=== PATIENT | male | born 1980 | race Caucasian/White ===

== ENCOUNTER 2024-05-23 08:34 | Inpatient (IN) | payer BC, SELFPAY ==
[2024-05-21] VITALS (11 sets, daily range): BP systolic 114–145; BP diastolic 60–87; BMI 27.5; BMI 27.4
--- NOTE | 2024-05-21 14:17 | ED.GENMED ---
History of Present Illness
General
Chief Complaint: Eye Problems
Time Seen by Provider: 05/21/24 13:54
History of Present Illness
History of Present Illness:
Patient is a 44-year-old male with history of Crohn's presenting to the emergency department with double vision. Patient states that went to sleep without any problems. Woke up this morning with binocular double vision. He saw his
qa architect who did a complete eye exam. He denies any facial droop numbness tingling or weakness. No speech changes. does note that his left eye was turned to different direction than his right eye he went to his qa architect who
completed a full exam and told him to come to the emergency department for further evaluation as it could be a CVA or neuropathy. No prior history of CVA. No history of hypertension hyperlipidemia or prediabetes. He does not smoke
Phy Exam
Physical Exam
Physical Exam:
GENERAL: in no acute distress
HEENT: normocephalic, extraocular movements intact, moist oral mucosa
NECK: normal inspection
RESPIRATORY: no respiratory distress, clear to auscultation bilaterally
CARDIOVASCULAR: regular rate and rhythm
ABDOMEN/: soft, non-distended, non-tender to palpation, no rebound or guarding
EXTREMITIES: non-tender, no edema/swelling
NEUROLOGIC: alert and oriented x 3, right eye with slight deviation and difficulty with AB duction with binocular double vision otherwise cranial nerves II-XII intact, right upper extremity strength 5/5, left upper extremity strength 5/5, right
lower extremity strength 5/5, left lower extremity strength 5/5, normal sensation to light touch, normal [id number] and [id number], gait not tested formally
SKIN: warm
Course
Orders/Labs/Results
Orders:
Orders
05/21/24 14:16
Electrocardiogram (*1) Urgent
Reason for Study: TIA/Stroke
CT Head & Neck Angio W/wo IV Urgent
Comment:
Reason For Exam: diplopia
EKG- Treatment ONCE
05/21/24 14:22
Basic Metabolic Panel Urgent
Complete Blood Count/With Diff Urgent
05/21/24 14:48
Aspirin Chewable [Low Strength Aspirin] 324 mg PO NOW STA
Clopidogrel Bisulfate [Plavix] 300 mg PO NOW STA
05/21/24 18:00
Atorvastatin [Lipitor] 40 mg PO QPM
05/22/24 08:00
Aspirin Low Dose EC [Aspir Low (Enteric Coated)] 81 mg PO DAILY
Clopidogrel Bisulfate [Plavix] 75 mg PO DAILY
Abnormal Lab Results
05/21/24
14:22
RBC 4.51 L 10^6/uL
(4.70-6.10)
Lymphocytes % 19.8 L %
(20.5-51.1)
Carbon Dioxide 31 H mmol/L
(22-30)
05/21/24 14:22
05/21/24 14:22
Vital Signs
Initial and Last Documented VS:
Initial Vital Signs
Temp Pulse Resp Pulse Ox
98.2 F 78 16 98
05/21/24 13:45 05/21/24 13:45 05/21/24 13:45 05/21/24 13:45
Last Documented Vital Signs
Temp Pulse Resp BP Pulse Ox
98.2 F 78 20 127/71 97
05/21/24 13:45 05/21/24 15:00 05/21/24 15:00 05/21/24 15:00 05/21/24 15:00
MDM/Problems Addressed
Differential Diagnosis Includes:
Patient is a 44-year-old man with history of Crohn's disease presenting to the emergency department with binocular diplopia. Vitals unremarkable and on exam he does have slight deviation of right eye. Concern for cranial nerve palsy versus CVA.
He has no other signs or symptoms to suggest other neuropathies or cavernous sinus thrombosis. Will check blood work EKG and CT CTA. Discussed with neurology who evaluated patient and noticed a slight left-sided pronator drift and right-sided 3rd
cranial nerve palsy. 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 Will proceed with CT CTA. Patient will be admitted for further work
*Critical Care Note
Total Time (30-74mins, 75-104mins- exclusive of procedures): Not Applicable
Update Note
Update Note:
CT scan negative for any acute abnormality or aneurysm. Patient aware of the lymph node findings. Discussed with hospitalist who accepted patient to their service
ED Attending Note
-
Portions of this chart may have been created with voice recognition software.� Occasional wrong word or��sound alike� substitutions may have occurred due to the inherent limitations of voice recognition software.
Discharge Plan
Departure
Patient Disposition: Admit
Date of Disposition: 05/21/24
Time of Disposition: 16:27
Presentation/result/management discussed w/ accepting MD/DO: Hospitalist
Discharge Problem:
CVA (cerebrovascular accident)
Prescriptions:
No Action
biotin 10 mg Tablet
10 mg PO DAILY
loperamide [Imodium A-D] 2 mg Capsule
2 mg PO DAILYPRN PRN (Reason: diarrhea)
cetirizine [Zyrtec] 10 mg Tablet
10 mg PO DAILY
citalopram 20 mg Tablet
20 mg PO DAILY
calcium polycarbophil [FiberCon] 625 mg Tablet
1,250 mg PO DAILY
vitamin B complex Tablet
1 tab PO DAILY
mesalamine 1.2 gram Tablet,Delayed Release (Dr/Ec)
2.4 g PO DAILY
Referrals:
Rinku Joseph DO [Family Provider] -
Interventions
Interventions:
*Risk Screen - Suicide Last Done: 05/21/24 13:45
*General Assessment Last Done: 05/21/24 14:00
*Neglect/Abuse Screening Last Done: 05/21/24 13:45
*ED- Fall Risk Assessment Last Done: 05/21/24 14:00
*ED COVID-19 Vaccine History Last Done: 05/21/24 14:00
Discharge Date and Time
Print Language: OCCITAN
[2024-05-21 14:32] LABS: % Basophils 0.6 % (0-2); % Eosinophils 1.1 % (0-6); % Immature Granulocytes 0.3 % (0-0.5); % Lymphocytes 19.8 % (20.5-51.1); % Monocytes 9.3 % (1.7-9.3); % Neutrophils 68.9 % (42.2-75.2); Absolute Eosinophils 0.1 10^3/uL (0-0.7); Absolute Lymphocytes 1.3 10^3/uL (1.2-3.4); Absolute Monocytes 0.6 10^3/uL (0.1-0.6); Absolute Neutrophils 4.5 10^3/uL (1.4-6.5); Hematocrit 39.3 % (39.0-52.0); Hemoglobin 13.8 g/dL (13.0-18.0); Mean Corp Hgb Conc. 35.1 g/dL (33.0-37.0); Mean Corpuscular Hgb 30.6 pg (27.0-31.0); Mean Corpuscular Volume 87.1 fL (80.0-94.0); Mean Platelet Volume 9.8 fL (7.4-10.4); Nucleated Red Blood Cells % 0 % (-); Platelet Count 204 10^3/uL (130-400); Red Blood Cell Count 4.51 10^6/uL (4.70-6.10); Red Cell Dist. Width 12.3 % (11.5-14.5); White Blood Cell Count 6.5 10^3/uL (4.8-10.8)
[2024-05-21 14:42] LABS: Blood Urea Nitrogen 16 mg/dl (9-20); Calcium 9.6 mg/dl (8.4-10.2); Carbon Dioxide 31 mmol/L (22-30); Chloride 104 mmol/L (98-107); Estimated Creatinine Clearance 120 ml/min; Glucose 93 mg/dl (70-99); Sodium 141 mmol/L (135-145); eGFR > 60.00
--- NOTE | 2024-05-21 14:49 | CON.NEURO ---
Neuro Assessment/Plan
Assessment
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
exam with subtle right 3rd palsy and left pronator drift
out of TNK window
NIHSS of 0, no role for thrombectomy
Plan
Head CT, CTA head/neck
Chew ASA 324 + ASA 81 daily
Plavix 300 + 75 daily
Lipitor 40
gave patient option of admit, tele, MRI, ECHO
or discharge home f/u cardiology holter monitoring
Consultation
Order
Date of Consultation: 05/21/24
Requesting Provider: Lars Young
Reason for Consult: diplopia
Subjective/Objective
Subjective Data
Date of Service: May 21, 2024
Patient is a 44-year-old male with history of Crohn's presenting to the emergency department with double vision. Patient states that went to sleep without any problems. Woke up this morning with binocular double vision. He saw his
economic consultant who did a complete eye exam. He denies any facial droop numbness tingling or weakness. No speech changes. does note that his left eye was turned to different direction than his right eye he went to his economic consultant who
completed a full exam and told him to come to the emergency department for further evaluation as it could be a CVA or neuropathy. No prior history of CVA. No history of hypertension hyperlipidemia or prediabetes. He does not smoke
This afternoon, patient reports binocular vertical diplopia, images one above the other. symptoms are improving. denies weakness or numbness
Objective Data
Vital Signs
Temp Pulse Resp BP Pulse Ox
36.8 C 80 15 138/83 100
05/21/24 13:45 05/21/24 14:06 05/21/24 14:06 05/21/24 14:06 05/21/24 14:06
Lab Results
05/21/24 14:22
05/21/24 14:22
Sodium 141 mmol/L (135-145) 05/21/24 14:22
Potassium 4.0 mmol/L (3.5-5.1) 05/21/24 14:22
BUN 16 mg/dl (9-20) 05/21/24 14:22
Glucose 93 mg/dl (70-99) 05/21/24 14:22
Calcium 9.6 mg/dl (8.4-10.2) 05/21/24 14:22
Patient Allergies
levofloxacin [From Levaquin] Allergy (Severe, Verified 05/21/24 13:48)
Tongue Swelling
cefaclor [From Ceclor] Allergy (Intermediate, Verified 05/21/24 13:48)
Nausea / Vomiting
Physical Exam
-
AAO x3, speech clear, language intact
VFF, EOM with subtle right 3rd palsy
trace left sided weakness, left pronator drift
sensation intact to touch/temp/vibration
DTR normal, symmetric
Medications
-
Active Medications
Generic Name Dose Route Start Last Admin
Trade Name Freq PRN Reason Stop Dose Admin
Aspirin 324 mg 05/21/24 14:48
Aspirin 81 Mg Chewable Tablet PO 05/21/24 14:49
NOW STA
Aspirin 81 mg 05/22/24 08:00
Aspirin 81 Mg (Enteric Coated) Tablet PO 06/19/24 07:59
DAILY PAN
Atorvastatin Calcium 40 mg 05/21/24 18:00
Atorvastatin (Lipitor) 40 Mg Tablet PO 06/18/24 17:59
QPM PAN
Clopidogrel Bisulfate 75 mg 05/22/24 08:00
Clopidogrel 75 Mg Tablet PO 06/11/24 08:01
DAILY PAN
Clopidogrel Bisulfate 300 mg 05/21/24 14:48
Clopidogrel 300 Mg Tablet PO 05/21/24 14:49
NOW STA
[2024-05-21] MEDS: LOW STRENGTH ASPIRIN 324 MG PO (15:14)
[2024-05-21] MEDS: PLAVIX 300 MG PO (15:14)
[2024-05-21] MEDS: LIPITOR 40 MG PO (17:54)
--- NOTE | 2024-05-21 18:40 | HPS.HSE ---
Family Physician
-
Family Physician: Rinku Joseph
Chief Complaint
-
Double vision
History of Present Illness
This is a 44 y.o male with past medical history significant for presenting to the emergency department with double vision.
Patient reported that he woke up this a.m. with double vision. Noted vertical diploplia when watching TV He denies any facial droop. He denies any numbness or tingling. He had no dysphagia after he or aphasia. A staff spouse noted that he had a
nonsynchronous movement of his eyes. He had a complete ophthalmological exam and was sent to the emergency department for evaluation.
Patient denies any headache. He denies any prior history of TIA or CVA. He denies history of hyperlipidemia diabetes or hypertension. Denies family history.
On neuro's exam, right CN III palsy was noted as well as a left upper extremity pronator drift.
When I saw the patient he no longer has any double vision but states he still has mild focusing difficulty.
In the emergency department the patient was afebrile. Blood pressure was 123/81 with a pulse of 87. ECG shows a normal sinus rhythm at a rate of 80 with a right bundle branch block, no priors for comparison. CBC was normal. Electrolytes
BUN/creatinine were all normal. Glucose was normal. He had a CT of the head which showed no acute abnormalities. CT angio of the head and neck was without any large vessel occlusion, dissection aneurysm or bleeding. Patient seen by neurology
with recommendations provided.
Medical History
Past Medical History
Past Medical History: Reports Other (Crohn's disease)
Past Surgical History: Reports Bowel Resection
Social History
Tobacco: Non-smoker
Alcohol: Occasional
Drug: None
Personal:
Living: With Family
Employment: Employed
Family History
Family History: Not pertinent
Allergies / Home Medications
Allergies reflects when Allergies were last updated in [employer].
Home Medications with original date entered in [employer]
Allergy/Medication List:
Allergies
Allergy/AdvReac Type Severity Reaction Status Date / Time
levofloxacin [From Levaquin] Allergy Severe Tongue Verified 05/21/24 13:48
Swelling
cefaclor [From Ceclor] Allergy Intermediate Nausea / Verified 05/21/24 13:48
Vomiting
Home Medications
biotin 10 mg tablet 10 mg PO DAILY 05/21/24
calcium polycarbophil 625 mg tablet (FiberCon) 1,250 mg PO DAILY 05/21/24
cetirizine 10 mg tablet (Zyrtec) 10 mg PO DAILY 05/21/24
citalopram 20 mg tablet 20 mg PO DAILY 05/21/24
loperamide 2 mg capsule (Imodium A-D) 2 mg PO DAILYPRN PRN diarrhea 05/21/24
mesalamine 1.2 gram tablet,delayed release 2.4 g PO DAILY 05/21/24
vitamin B complex 1 tab PO DAILY 05/21/24
Review of Systems
-
History Source: Patient
Constitutional: Reports No Symptoms
EENT: Reports No Symptoms
Respiratory: Reports No Symptoms
Cardiac: Reports No Symptoms
Abdomen/GI: Reports No Symptoms
: Reports No Symptoms
Musculoskeletal: Reports No Symptoms
Skin: Reports No Symptoms
Neurological: Reports No Symptoms
Endocrine: Reports No Symptoms
Hematologic/Lymphatic: Reports No Symptoms
Psych: Reports No Symptoms
Physical Exam
Vital Signs
Vital Signs
Temp Pulse Resp BP Pulse Ox
98.2 F 87 19 133/81 95
05/21/24 13:45 05/21/24 17:40 05/21/24 17:40 05/21/24 17:40 05/21/24 17:40
Physical Exam
General: Well Developed, Well Nourished, No Apparent Distress and Comfortable
HEENT: NormoCephalic, Anicteric, Moist mucous membranes and Atraumatic
Respiratory: Clear
Cardiac: S1/S2 and Regular Rhythm
Breast: Deferred by me
GI: Soft, Non Tender, Non Distended and Normal Bowel Sounds
Rectal: Deferred by Provider
Genito-urinary: Deferred by me
Musculoskeletal: No Clubbing, No Cyanosis and No Edema
Skin: Warm
Neuro: AO x 3, No Motor Deficits, Cranial Nerves Intact, No Sensory Deficits and DTR's Intact & Symmetrical; No Slurred Speech or Facial Droop
Hematologic/Lymphatic: No Lymphadenopathy
Psych: Calm
Laboratory Results
-
05/21/24 14:22
05/21/24 14:22
Data Reviewed
-
CT Scan: Report Reviewed by me
Medical Tests (Nuc Med, Echo, EKG etc): Image Personally Visualized and interpreted
Lab Data: Labs Reviewed by me
Old Records: Reviewed
Impression/Plan
-
IMPRESSION:
44-year-old with history of Crohn's disease presenting to the emergency department with episode of double vision that started as he arose this morning. Vertical diploplia when watching TV and mild blurriness. Currently NIHSS equals 0. Seen by
neurology and found to have a mild cranial nerve palsy with left upper extremity weakness also mild. CT of the head was negative. CT angio was also negative. Labs are unremarkable. ECG shows a normal sinus rhythm with a right bundle. There is
concern for CVA/TIA in the right midbrain (Lafleur syndrome). On my exam, there was no longer any deficit c/w TIA.
PLAN:
CVA/TIA
- admit to telemetry
- started on aspirin/plavix and statin
- MRI brain in am
- echo in am
- neurochecks q 6 for now
- esr, lipid panel and a1c
Crohns stable
- continue mesalamine
DVT PPX - SCDs
Code status - Full code
[2024-05-22] VITALS (7 sets, daily range): BP systolic 94–137; BP diastolic 60–80; PULSE 68; O2SAT 96–98
[2024-05-22] MEDS: ASPIR LOW (ENTERIC COATED) 81 MG PO (08:04)
[2024-05-22] MEDS: FIBERCON 1250 MG PO (08:04)
[2024-05-22] MEDS: ZYRTEC 10 MG PO (08:04)
[2024-05-22] MEDS: PLAVIX 75 MG PO (08:04)
[2024-05-22] MEDS: CELEXA 20 MG PO (08:04)
[2024-05-22] MEDS: B COMPLEX w/VITAMIN C 1 CAPLET PO (08:05)
[2024-05-22 08:15] LABS: Blood Urea Nitrogen 17 mg/dl (9-20); Calcium 9.3 mg/dl (8.4-10.2); Carbon Dioxide 27 mmol/L (22-30); Chloride 105 mmol/L (98-107); Estimated Creatinine Clearance 120 ml/min; Glucose 92 mg/dl (70-99); HDL Cholesterol 50 mg/dl; LDL Cholesterol, Calculated 71 mg/dl; Magnesium 2.3 mg/dl (1.6-2.3); Potassium 4.2 mmol/L (3.5-5.1); Sodium 142 mmol/L (135-145); Total Cholesterol 163 mg/dl (50-199); Triglyceride 211 mg/dl (10-149); Very Low Density Lipoprotein 42 mg/dl (0-30); eGFR > 60.00
--- NOTE | 2024-05-22 08:23 | W.PN.HOSP.TC ---
Today's Communication/Plan
-
Repeat MRI and IRAD consulted for LP tomorrow
Assessment / Plan
Assessment / Plan
Physical Exam
General: Not in acute distress
HEENT: Normocephalic, Moist mucous membranes and Atraumatic
Respiratory: Clear to Auscultation Bilaterally
Cardiac: S1/S2 and Regular Rhythm
GI: Soft, Non Tender, Non Distended and Normal Bowel Sounds
Musculoskeletal: No Cyanosis and No Edema
Skin: Warm. Dry.
Neuro: AAO x 3, Right Pronator Drift, otherwise: No Motor Deficits, Cranial Nerves Intact, No Sensory Deficits
Psych: Calm

Assessment/Plan
44 y/o male presented with double vision. Patient reported that he woke up in the morning with double vision (vertical diplopia). He denied any facial droop. He denied any numbness or tingling. He had no dysphagia or aphasia. His spouse noted that
he had a nonsynchronous movement of his eyes. He had a complete ophthalmological exam and was sent to the emergency department for evaluation. Patient denied any headache. He denied any prior history of TIA or CVA. He denied history of
hyperlipidemia diabetes or hypertension.
Patient had a CT of the head which showed no acute abnormalities.
Seen around the time of admission by neurology and found to have a mild cranial nerve palsy (subtle right 3rd cranial nerve palsy) with left upper extremity pronator drift. CT of the head was negative.
Presentation with transient vertical diplopia, now resolved
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
CVA/TIA
- Aspirin/Plavix and Statin all now stopped since this is not a stroke
- Per neurology, 'MRI brain without contrast imgs rev'd with patient, agree right anterior thalamic focus of diffusion and FLAIR hyperintensity - does not look typical for a 1 day
old stroke; suspecting mass or demyelinating; additional left frontal lesion on FLAIR - which may or may not be related'
-MRI brain with contrast and LP tomorrow
History of Fluttering in the chest -- related to anxiety?
-Had EKG at that time unremarkable
Crohns stable
- continue mesalamine
DVT Prophylaxis: SCDs. Lovenox.
Code status: Full code
Anticipated Discharge: 24 - 48 hours
Subjective/Interval History
-
Date of Service: May 22, 2024
Patient was seen and examined. He reported that his double vision resolved. No new neurologic symptoms.
Objective Data
-
Labs:
Laboratory Results
05/22/24
07:27
Sodium 142
Potassium 4.2
Chloride 105
Carbon Dioxide 27
BUN 17
Creatinine 0.8
Glucose 92
Calcium 9.3
Vital Signs:
Vital Signs
Temp Pulse Resp BP Pulse Ox
98.5 F 67 18 102/61 98
05/22/24 07:39 05/22/24 07:39 05/22/24 07:39 05/22/24 07:39 05/22/24 07:39
I&O
05/21/24 05/22/24 05/23/24
06:59 06:59 06:59
Intake Total 120 / 120
Balance 120 / 120
[2024-05-22 08:42] LABS: Erythrocyte Sed Rate 6 mm/hour (0-20)
[2024-05-22 09:34] LABS: Glycohemoglobin (HgbA1c) 4.7 % (4.0-5.6)
--- NOTE | 2024-05-22 12:03 | PTOTSP ---
Speech therapy
Presentation: Patient was alert, cooperative and oriented. Patient's speech and language appeared to be WNL during conversation.
Swallowing function: WINK CUTTER OPERATOR observed patient with several bites of regular consistency solids and sips of thin liquids in which patient appeared to tolerate as he did not exhibit any overt clinical s/sx of aspiration or difficulty with mastication/
manipulation. Patient denied any dysphagia complaints but states his appetite has decreased since admission which he connects with the distaste for the food.
Recommendations:
1) reg/ thin liquids
2) aspiration precautions
3) medications as tolerated
Plan: WINK CUTTER OPERATOR will continue to follow to ensure tolerance; pending hospitalization.
--- NOTE | 2024-05-22 14:41 | CM ---
Initial assessment completed with pt and at bedside.
Pt is a 44yr old male admitted on OBS with CVA vs TIA OBS form explained at beside
At baseline, Luis and his live in a multi level home with their family.
Pt is indep, working, and drives at baseline.
PCP; Rinku Joseph
Pharm; [facility]
PLAN; No needs anticipated
--- NOTE | 2024-05-22 15:37 | W.PN.NEURO.1 ---
Today's Communication / Plan
-
Stop ASA, Plavix, Lipitor
discussed management options, he agrees to stay another night for MRI brain with contrast and LP tomorrow
Neuro Assessment/Plan
Assessment
presented with transient vertical diplopia, now resolved
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
Head CT normal
CTA head/neck normal
MRI brain without contrast imgs rev'd with patient, agree right anterior thalamic focus of diffusion and FLAIR hyperintensity - does not look typical for a 1 day old stroke; suspecting mass or demyelinating; additional left frontal lesion on FLAIR -
which may or may not be related
Plan
Stop ASA, Plavix, Lipitor
discussed management options, he agrees to stay another night for MRI brain with contrast and LP tomorrow
Subjective/Objective
Subjective Data
Date of Service: May 22, 2024
double vision resolved
Objective Data
Vital Signs
Temp Pulse Resp BP Pulse Ox
37.1 C 70 20 121/60 97
05/22/24 14:49 05/22/24 14:49 05/22/24 14:49 05/22/24 14:49 05/22/24 14:49
Lab Results
05/21/24 14:22
05/22/24 07:27
Sodium 142 mmol/L (135-145) 05/22/24 07:27
Potassium 4.2 mmol/L (3.5-5.1) 05/22/24 07:27
BUN 17 mg/dl (9-20) 05/22/24 07:27
Glucose 92 mg/dl (70-99) 05/22/24 07:27
Calcium 9.3 mg/dl (8.4-10.2) 05/22/24 07:27
LDL Cholesterol, Calc 71 mg/dl 05/22/24 07:27
Patient Allergies
levofloxacin [From Levaquin] Allergy (Severe, Verified 05/21/24 13:48)
Tongue Swelling
cefaclor [From Ceclor] Allergy (Intermediate, Verified 05/21/24 13:48)
Nausea / Vomiting
Physical Exam
-
AAOx3, speech clear, language intact
VFF, EOMI, face symmetric
full strength b/l UE/LE, right pronator drift
[2024-05-22] MEDS: LOVENOX 40 MG SC (18:01)
[2024-05-23] VITALS (8 sets, daily range): BP systolic 70–128; BP diastolic 57–79
--- NOTE | 2024-05-23 06:34 | W.PN.HOSP.TC ---
Today's Communication/Plan
-
ID eval
monitor off abx
monitor temp, wbc
spine MRI as per Neuro
Assessment / Plan
Assessment / Plan
Physical Exam
General: Not in acute distress, appears comfortable at this time
HEENT: Normocephalic, Moist mucous membranes and Atraumatic
Respiratory: Clear to Auscultation Bilaterally
Cardiac: S1/S2 and Regular Rhythm
GI: Soft, Non Tender, Non Distended and Normal Bowel Sounds
Musculoskeletal: No Cyanosis and No Edema, strength 5/5 all ext's
Skin: Warm. Dry.
Neuro: AOx3 conversant coherent
Psych: Calm

Assessment/Plan
44M p/w double vision (vertical diplopia). Denied facial droop, numbness, tingling, dysphagia, or aphasia. His spouse noted that he had nonsynchronous movement of his eyes. He had a complete ophthalmological exam and was sent to the emergency
department for evaluation. Patient denied any headache. He denied any prior history of TIA/CVA. CT of the head which showed no acute abnormalities. Evaluated by neurology and found to have a mild cranial nerve palsy (subtle right 3rd cranial nerve
palsy) with left upper extremity pronator drift. Vertical Diplopia transient since completely resolved. Initial suspicion minor stroke or TIA right midbrain (Lafleur syndrome) but stroke ruled out from MRI Brain. MRI brain however concerning for
possibly demyelination vs infectious/inflammatory encephalopathies.
-Neuro eval appreciated Empiric Aspirin/Plavix Statin discontinued
- LP performed 05/23
-CSF studies concerning for pleocytosis
-ID eval appreciated symptomatology and CSF analysis not consistent w/ meningitis, cont monitoring off abx
-pending MRI cervical/thoracic spine as per neurology
Crohns stable
- continue mesalamine
PT/OT appreciated no needs
DVT Prophylaxis: SCDs. Lovenox.
Code status: Full code
discussed with patient and patient's Margie
I spent a total of 45 minutes with the patient or on the floor. More than 50% of this time involved counseling and coordination of care.
Anticipated Discharge: Within 24 hours
Subjective/Interval History
-
Date of Service: May 23, 2024
no acute distress. reports overall feeling well. no new episodes diplopia. ambulating without issues.
Objective Data
-
Vital Signs:
Vital Signs
Temp Pulse Resp BP Pulse Ox
97.9 F 66 18 99/57 98
05/23/24 03:07 05/23/24 03:07 05/23/24 03:07 05/23/24 03:07 05/23/24 03:07
I&O
05/21/24 05/22/24 05/23/24
06:59 06:59 06:59
Intake Total 120 / 120 1160 / 1160
Balance 120 / 120 1160 / 1160
[2024-05-23 07:45] LABS: INR 0.97; PT 13.2 Sec (11.4-14.6)
[2024-05-23] MEDS: ZYRTEC 10 MG PO (08:52)
[2024-05-23] MEDS: CELEXA 20 MG PO (08:52)
[2024-05-23] MEDS: B COMPLEX w/VITAMIN C 1 CAPLET PO (08:52)
[2024-05-23] MEDS: FIBERCON 1250 MG PO (08:52)
[2024-05-23 13:26] LABS: CSF Clarity Clear; CSF Color Colorless; CSF Tube # 3
[2024-05-23 13:28] LABS: Red Cell Count/CSF 5 mm^3
[2024-05-23 13:29] LABS: White Cell Count/CSF 126 mm^3 (0-5)
--- NOTE | 2024-05-23 13:40 | CON.NEURO ---
Neuro Assessment/Plan
Assessment
presented with transient vertical diplopia, now resolved
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
Head CT normal
CTA head/neck normal
MRI brain without contrast imgs rev'd with patient, agree right anterior thalamic focus of diffusion and FLAIR hyperintensity - does not look typical for a 1 day old stroke; suspecting mass or demyelinating; additional left frontal lesion on FLAIR -
which may or may not be related
Plan
Stop ASA, Plavix, Lipitor
discussed management options, he agrees to stay another night for MRI brain with contrast and LP tomorrow
Consultation
Order
Date of Consultation: 05/23/24
Neurology follow-up note.
HPI: This is a 44-year-old man who presented to [facility] on May 21, 2024 with transient painless binocular diplopia lasting less than 24 hours.The patient described seeing objects vertically on top of each other, with no
preference for right or left. The patient denied associated symptoms such as headaches, difficulty swallowing, or changes in sensation. He also denied any recent eye trauma. The patient reported being 'a little off grabbing things' during this
episode.
ER VS: 138/83, 78, afebrile
EKG:NSR, RBBB, QTc Int : 479 ms
Labs: Normal ESR, LDL,
CSF�WBCs�126, RBCs�5,
Brain MRI with and without gadolinium (05/23/2024) FLAIR hyperintense signal at the anterior margin of the right thalamus, two adjacent foci of postcontrast enhancement are identified at this location measuring 0.8 x 0.6 x 0.7 cm and 0.5 x 0.5 x 1.3
cm.
Mild FLAIR hyperintense signal of the bilateral mamillary bodies. 0.4 cm focus of enhancement to the left midline above the optic chiasm and anterior to the left mamillary body. 0.5 cm focus of enhancement to the right of midline that appears to
involve the right optic nerve tract just distal to the optic chiasm.
CTA head/neck�no hemodynamically significant stenosis, hilar, supraclavicular and paratracheal lymph node enlargement.
PMH: Crohn's disease on Mesalamine, ARABELLA Meckel's diverticulum
PSH: Intestinal resection, exploratory laparotomy
SH: , non-smoker, no history of excessive alcohol use
FH: No family history of autoimmune disease
All:
ROS: Constitutional: Negative. Negative for chills, fever and unexpected weight change.
HENT: Negative for ear pain, hearing loss, tinnitus and trouble swallowing.
Eyes: Negative. Negative for photophobia, pain and visual disturbance.
Respiratory: Negative for cough, choking and shortness of breath.
Cardiovascular: Negative for chest pain, palpitations and leg swelling.
Gastrointestinal: Negative for abdominal pain and vomiting.
Endocrine: Negative. Negative for cold intolerance.
Genitourinary: Negative for dysuria, flank pain and urgency.
Musculoskeletal: Negative for back pain, gait problem, neck pain and neck stiffness.
Skin: Negative for rash.
Allergic/Immunologic: Negative. Negative for immunocompromised state.
Neurological: Negative for dizziness, tremors, seizures, speech difficulty, numbness and headaches.
Psychiatric/Behavioral: Negative for behavioral problems, confusion and hallucinations.
General: Well developed. In no acute distress.
Cardio: Regular rate and rhythm without murmur. Extremities are without cyanosis or edema.
Neuro:
Mental Status: Alert, oriented to person, place, and date. Normal attention and recall. Good fund of knowledge. Follows complex requests across the midline. Comprehension, naming, and repetition intact. Immediate and delayed recall 3/3.
Cranial Nerves: Pupils are equally round and reactive to light. EOMs full. Visual castañeda full to confrontation. No ptosis. No nystagmus. V1-V3 intact to light touch and pinprick bilaterally, symmetric. Face symmetric. Normal hearing AU. The
palate elevated well. SCMs and traps 5/5. Tongue midline. No dysarthria.
Motor: Normal bulk and tone. No pronator or arm drift. Strength 5/5 throughout. No clonus.
Reflexes: 2+ throughout the upper extremities and knees. 2/2 in AJs. Plantar responses flexor bilaterally.
Sensory: Normal pinprick, vibration and JPS.
Coordination: No dysmetria or tremor.
Gait: deferred
Assessment and Plan:
I. Multifocal cranial nerve, mamillary body and basal ganglia enhancing signal abnormalities. Differential diagnosis includes inflammatory versus demyelinating versus infectious etiologies.
II. Lymphadenopathy
III. Crohn's disease
- Fall precautions
- Placed check thiamine level, EMELINA, CRP, NIEVES, B12, SPEP, ANCA
-Start IV thiamine after vitamin B1 level is drawn
- Follow-up CSF studies
- PT
I personally reviewed all radiology and labs along with past medical records pertinent to current medical problems. Total time spent in patient care is 60 minutes.
Thank you for allowing us to participate in the care of this patient. We will continue to follow. Please do not hesitate to contact us with any questions or concerns.
Subjective/Objective
Subjective Data
Date of Service: May 23, 2024
Objective Data
Vital Signs
Temp Pulse Resp BP Pulse Ox
37.0 C 64 18 110/72 98
05/23/24 11:38 05/23/24 12:27 05/23/24 12:27 05/23/24 12:27 05/23/24 11:38
Lab Results
05/21/24 14:22
05/22/24 07:27
PT 13.2 Sec (11.4-14.6) 05/23/24 07:23
INR 0.97 05/23/24 07:23
Sodium 142 mmol/L (135-145) 05/22/24 07:27
Potassium 4.2 mmol/L (3.5-5.1) 05/22/24 07:27
BUN 17 mg/dl (9-20) 05/22/24 07:27
Glucose 92 mg/dl (70-99) 05/22/24 07:27
Calcium 9.3 mg/dl (8.4-10.2) 05/22/24 07:27
LDL Cholesterol, Calc 71 mg/dl 05/22/24 07:27
Patient Allergies
levofloxacin [From Levaquin] Allergy (Severe, Verified 05/21/24 13:48)
Tongue Swelling
cefaclor [From Ceclor] Allergy (Intermediate, Verified 05/21/24 13:48)
Nausea / Vomiting
Medications
-
Active Medications
Generic Name Dose Route Start Last Admin
Trade Name Freq PRN Reason Stop Dose Admin
Acetaminophen 650 mg 05/21/24 20:44
Acetaminophen 650 Mg Rectal Suppository RECTAL 06/18/24 20:43
Q4HPRN PRN
ROSENBERG, mild pain, or temp >100.4F
Acetaminophen 650 mg 05/21/24 20:44
Acetaminophen 325 Mg Tablet PO 06/18/24 20:43
Q4HPRN PRN
ROSENBERG, mild pain, or temp >100.4F
Calcium Polycarbophil 1,250 mg 05/22/24 08:00 05/23/24 08:52
Calcium Polycarbophil 625 Mg Tablet PO 06/19/24 07:59 1,250 mg
DAILY PAN Administration
Cetirizine HCl 10 mg 05/22/24 08:00 05/23/24 08:52
Cetirizine Hcl 10 Mg Tablet PO 06/19/24 07:59 10 mg
DAILY PAN Administration
Citalopram Hydrobromide 20 mg 05/22/24 08:00 05/23/24 08:52
Citalopram 20 Mg Tablet PO 06/19/24 07:59 20 mg
DAILY PAN Administration
Enoxaparin Sodium 40 mg 05/22/24 18:00 05/22/24 18:01
Enoxaparin Sodium 40 Mg/0.4 Ml Syringe SC 06/19/24 17:59 40 mg
QPM PAN Administration
Loperamide HCl 2 mg 05/21/24 20:44
Loperamide 2 Mg Capsule PO 06/18/24 20:43
DAILYPRN PRN
diarrhea
Mesalamine 1.2 Gram 0 grams 05/22/24 08:00
Tablet,Delayed PO 06/19/24 07:59
Release (Dr/Ec) Take DAILY PAN
2 Tablets (2 X 1.2
Gm = 2.4 Gm) Po
Sodium Chloride 0 flush 05/21/24 22:00
Sodium Chloride 0.9% (Flush) Syringe IV 06/18/24 21:59
PER PROTOCOL PAN
Vitamin B Complex/Vitamin C 1 caplet 05/22/24 08:00 05/23/24 08:52
Vitamin B Complex With Vitamin C Caplet PO 06/19/24 07:59 1 caplet
DAILY PAN Administration
Home Medications
�Medication �Instructions �Recorded
biotin 10 mg tablet 10 mg PO DAILY 05/21/24
calcium polycarbophil 625 mg 1,250 mg PO DAILY 05/21/24
tablet (FiberCon)
cetirizine 10 mg tablet (Zyrtec) 10 mg PO DAILY 05/21/24
citalopram 20 mg tablet 20 mg PO DAILY 05/21/24
loperamide 2 mg capsule (Imodium 2 mg PO DAILYPRN PRN diarrhea 05/21/24
A-D)
mesalamine 1.2 gram tablet,delayed 2.4 g PO DAILY 05/21/24
release
vitamin B complex 1 tab PO DAILY 05/21/24
Vital Signs and Labs
-
Vital Signs and Labs:
Vital Signs
Temp Pulse Resp BP Pulse Ox
37.0 C 64 18 110/72 98
05/23/24 11:38 05/23/24 12:27 05/23/24 12:27 05/23/24 12:27 05/23/24 11:38
Lab Results
05/21/24 14:22
05/22/24 07:27
PT 13.2 Sec (11.4-14.6) 05/23/24 07:23
INR 0.97 05/23/24 07:23
Sodium 142 mmol/L (135-145) 05/22/24 07:27
Potassium 4.2 mmol/L (3.5-5.1) 05/22/24 07:27
BUN 17 mg/dl (9-20) 05/22/24 07:27
Glucose 92 mg/dl (70-99) 05/22/24 07:27
Calcium 9.3 mg/dl (8.4-10.2) 05/22/24 07:27
LDL Cholesterol, Calc 71 mg/dl 05/22/24 07:27
Medications
-
Medications:
Generic Name Dose Route Start Last Admin
Trade Name Freq PRN Reason Stop Dose Admin
Acetaminophen 650 mg 05/21/24 20:44
Acetaminophen 650 Mg Rectal Suppository RECTAL 06/18/24 20:43
Q4HPRN PRN
ROSENBERG, mild pain, or temp >100.4F
Acetaminophen 650 mg 05/21/24 20:44
Acetaminophen 325 Mg Tablet PO 06/18/24 20:43
Q4HPRN PRN
ROSENBERG, mild pain, or temp >100.4F
Calcium Polycarbophil 1,250 mg 05/22/24 08:00 05/23/24 08:52
Calcium Polycarbophil 625 Mg Tablet PO 06/19/24 07:59 1,250 mg
DAILY PAN Administration
Cetirizine HCl 10 mg 05/22/24 08:00 05/23/24 08:52
Cetirizine Hcl 10 Mg Tablet PO 06/19/24 07:59 10 mg
DAILY PAN Administration
Citalopram Hydrobromide 20 mg 05/22/24 08:00 05/23/24 08:52
Citalopram 20 Mg Tablet PO 06/19/24 07:59 20 mg
DAILY PAN Administration
Enoxaparin Sodium 40 mg 05/22/24 18:00 05/22/24 18:01
Enoxaparin Sodium 40 Mg/0.4 Ml Syringe SC 06/19/24 17:59 40 mg
QPM PAN Administration
Loperamide HCl 2 mg 05/21/24 20:44
Loperamide 2 Mg Capsule PO 06/18/24 20:43
DAILYPRN PRN
diarrhea
Mesalamine 1.2 Gram 0 grams 05/22/24 08:00
Tablet,Delayed PO 06/19/24 07:59
Release (Dr/Ec) Take DAILY PAN
2 Tablets (2 X 1.2
Gm = 2.4 Gm) Po
Sodium Chloride 0 flush 05/21/24 22:00
Sodium Chloride 0.9% (Flush) Syringe IV 06/18/24 21:59
PER PROTOCOL PAN
Vitamin B Complex/Vitamin C 1 caplet 05/22/24 08:00 05/23/24 08:52
Vitamin B Complex With Vitamin C Caplet PO 06/19/24 07:59 1 caplet
DAILY PAN Administration
Home Medications
-
Home Medications
biotin 10 mg tablet 10 mg PO DAILY 05/21/24
calcium polycarbophil 625 mg tablet (FiberCon) 1,250 mg PO DAILY 05/21/24
cetirizine 10 mg tablet (Zyrtec) 10 mg PO DAILY 05/21/24
citalopram 20 mg tablet 20 mg PO DAILY 05/21/24
loperamide 2 mg capsule (Imodium A-D) 2 mg PO DAILYPRN PRN diarrhea 05/21/24
mesalamine 1.2 gram tablet,delayed release 2.4 g PO DAILY 05/21/24
vitamin B complex 1 tab PO DAILY 05/21/24
[2024-05-23 14:22] LABS: Spinal Fluid Glucose 35 mg/dl (40-70); Spinal Fluid Protein 118 mg/dl (12-60)
[2024-05-23 14:59] LABS: Spinal Fluid Lymphocytes 91 %; Spinal Fluid Macrophages 9 %
--- NOTE | 2024-05-23 16:17 | CM ---
Chart reviewed. Care ongoing at this time.
LOC changed to IP today
Therapy assessed, no skilled needs at this time
Plan: Home; no needs when stable
--- NOTE | 2024-05-23 16:18 | CON.ID ---
Consultation
-
Date/Time Consultation Requested: 05/23/2024 15:12
Date/Time Consultation Performed: 05/23/2024 1600
Requesting Provider: Garfield
Performing Provider: Anup
Reason for Consultation: Abnormal CSF
Chief Complaint / Past History
History of Present Illness
Luis Iraheta is a 44-year-old man being evaluated regarding abnormal lumbar puncture results. History is obtained from chart review, along with patient interview.
The patient has a significant past medical history of Crohn's disease. He reports he was in his usual state of health until the morning of 05/21 when he woke up he was found to have double vision. He was seen at his fram[place] office, and sent
to the emergency room for further evaluation. Initial concern was for possible CVA or some other type of LAB TECH issue. He underwent a lumbar puncture today and found to have a pleocytosis. Infectious Diseases is asked to comment upon further
antibiotic management.
At this time he reports that his diplopia has completely resolved. He has not had any recent illnesses, no recent fevers or chills. He does have a pet dog. He does not have significant outdoor exposure.
Past History
Additional Past Medical History:
Crohn's disease
Additional Past Surgical History:
Small bowel resection (2000)
Allergy History:
levofloxacin [From Levaquin] Allergy (Severe, Verified 05/21/24 13:48)
Tongue Swelling
cefaclor [From Ceclor] Allergy (Intermediate, Verified 05/21/24 13:48)
Nausea / Vomiting
Medications Reviewed: Yes
Current Antibiotics:
None
Social History
Tobacco: Non-Smoker
Alcohol: Occasional
Drug: None
Personal:
Living: With Family
Employment: Employed
Family History
Family History: Not Pertinent
Review of Systems
Vital Signs
Temp Pulse Resp BP Pulse Ox
98 F 91 18 128/67 99
05/23/24 15:09 05/23/24 15:09 05/23/24 15:09 05/23/24 15:09 05/23/24 15:09
Physical Exam
Physical Exam
Constitutional: No Acute Distress, Comfortable and Non-toxic
Eyes: Pupils Equal, Pupils Round, No Conjunctival Hemorrhage, Sclera Anicteric and Other (EOMI)
Pharynx: Negative Erythema
Oral: Negative No Thrush or No Ulcers
Cardiovascular: Regular Rate and S1/S2; Negative S3/S4
Pulmonary: Clear; Negative Wheezes, Rales or Rhonchi
Gastrointestinal: Soft, Non Tender and Non Distended
Skin: Negative Rash or Jaundice
Neurological: Awake and Alert
Psychological: Calm
Lab / Diagnostic Study Results
05/21/24 14:22
05/22/24 07:27
Abs Immat Gran (auto) 0.0 10^3/uL (0-0.05) 05/21/24 14:22
Absolute Neuts (auto) 4.5 10^3/uL (1.4-6.5) 05/21/24 14:22
Absolute Lymphs (auto) 1.3 10^3/uL (1.2-3.4) 05/21/24 14:22
Absolute Monos (auto) 0.6 10^3/uL (0.1-0.6) 05/21/24 14:22
Absolute Basos (auto) 0.0 10^3/uL (0-0.2) 05/21/24 14:22
Immature Gran % 0.3 % (0-0.5) 05/21/24 14:22
Neutrophils % 68.9 % (42.2-75.2) 05/21/24 14:22
Lymphocytes % 19.8 % (20.5-51.1) L 05/21/24 14:22
Monocytes % 9.3 % (1.7-9.3) 05/21/24 14:22
Eosinophils % 1.1 % (0-6) 05/21/24 14:22
Basophils % 0.6 % (0-2) 05/21/24 14:22
ESR 6 mm/hour (0-20) 05/22/24 07:27
PT 13.2 Sec (11.4-14.6) 05/23/24 07:23
INR 0.97 05/23/24 07:23
Microbiology Results
CSF
05/23/24
12:10
CSF Appearance Clear
CSF Color Colorless
CSF WBC 126 H*
CSF RBC 5
CSF Lymphocytes 91
CSF Macrophages 9
CSF Glucose 35 L
CSF Total Protein 118 H
Imaging:
05/23/2024 MRI brain with contrast: LAIR hyperintense signal is redemonstrated at the anterior margin of the right thalamus, as seen on the recent brain MRI from 05/22/2024. Two adjacent foci of postcontrast enhancement are identified at this
location measuring 0.8 x 0.6 x 0.7 cm and 0.5 x 0.5 x 1.3 cm. Findings are of uncertain etiology. Wernicke encephalopathy is a possibility, although the distribution is somewhat atypical. Active demyelination or other inflammatory/infectious
encephalopathies could be considered. The patient is currently scheduled for a lumbar puncture, and correlation with CSF fluid analysis may be helpful. Further imaging follow-up can also be performed. (See official report for additional detail.
Film personally reviewed.)
Assessment / Plan
Diplopia; resolved.
Abnormal MRI (1.4 cm focus of diffusion in anterior aspect of right thalamus)
Abnormal CSF; symptomatology and CSF analysis not consistent with meningitis
Recommendations:
Observe off antibiotics.
Await further workup of LAB TECH lesion.
Monitor white count and temperature curve.
[2024-05-23] MEDS: LOVENOX 40 MG SC (17:08)
[2024-05-23 17:19] LABS: C-Reactive Protein < 5.00 mg/L (0.0-10.00)
[2024-05-23 18:10] LABS: Vitamin B12 426 pg/ml (239-931)
[2024-05-24 03:43] VITALS: BP 93/67
--- NOTE | 2024-05-24 06:22 | W.PN.HOSP.TC ---
Today's Communication/Plan
-
discharge
Assessment / Plan
Assessment / Plan
Physical Exam
General: Not acute distress, appears comfortable at this time
HEENT: Normocephalic, Moist mucous membranes and Atraumatic
Respiratory: Clear to Auscultation Bilaterally
Cardiac: S1/S2 and Regular Rhythm
GI: Soft, Non Tender, Non Distended and Normal Bowel Sounds
Musculoskeletal: No Cyanosis and No Edema, strength 5/5 all ext's
Skin: Warm. Dry.
Neuro: AOx3 conversant coherent
Psych: Calm

Assessment/Plan
44M p/w double vision (vertical diplopia). Denied facial droop, numbness, tingling, dysphagia, or aphasia. His spouse noted that he had nonsynchronous movement of his eyes. He had a complete ophthalmological exam and was sent to the emergency
department for evaluation. Patient denied any headache. He denied any prior history of TIA/CVA. CT of the head which showed no acute abnormalities. Evaluated by neurology and found to have a mild cranial nerve palsy (subtle right 3rd cranial nerve
palsy) with left upper extremity pronator drift. Vertical Diplopia transient since completely resolved. Initial suspicion minor stroke or TIA right midbrain (Lafleur syndrome) but stroke ruled out from MRI Brain. MRI brain however concerning for
possibly demyelination vs infectious/inflammatory encephalopathies.
-Neuro eval appreciated Empiric Aspirin/Plavix Statin discontinued, not needed with stroke rule out
- LP performed 05/23
-CSF studies concerning for pleocytosis
-ID eval appreciated symptomatology and CSF analysis not consistent w/ meningitis, cont monitoring off abx
-MRI cervical/thoracic spine unremarkable
Crohns stable
- continue mesalamine
PT/OT appreciated no needs
DVT Prophylaxis: SCDs. Lovenox.
Code status: Full code
Medically stable for discharge home with outpatient follow up recommendations.
discussed with patient and patient's Margie
Total Time Preparing Discharge __40 minutes including examination of the patient, summary of the hospital stay, instructions for continuing care to all relevant caregivers; and preparation of discharge records, prescriptions, and referral
forms if necessary.
Anticipated Discharge: Today
Subjective/Interval History
-
Date of Service: May 24, 2024
No acute distress. Reports feeling well. Denies new acute issues. Eager to go home.
Objective Data
-
Labs:
Laboratory Results
05/24/24
06:00
WBC Pending
Hgb Pending
Hct Pending
Plt Count Pending
Sodium Pending
Potassium Pending
Chloride Pending
Carbon Dioxide Pending
BUN Pending
Creatinine Pending
Glucose Pending
Calcium Pending
Vital Signs:
Vital Signs
Temp Pulse Resp BP Pulse Ox
97.9 F 75 16 93/67 98
05/24/24 03:43 05/24/24 03:43 05/24/24 03:43 05/24/24 03:43 05/24/24 03:43
I&O
05/22/24 05/23/24 05/24/24
06:59 06:59 06:59
Intake Total 120 / 120 1160 / 1160 960 / 960
Balance 120 / 120 1160 / 1160 960 / 960
[2024-05-24 07:43] VITALS: BP 107/68
[2024-05-24] MEDS: ZYRTEC 10 MG PO (07:59)
[2024-05-24] MEDS: B COMPLEX w/VITAMIN C 1 CAPLET PO (07:59)
[2024-05-24] MEDS: CELEXA 20 MG PO (07:59)
[2024-05-24] MEDS: FIBERCON 1250 MG PO (07:59)
[2024-05-24 08:09] LABS: Hematocrit 37.8 % (39.0-52.0); Hemoglobin 13.2 g/dL (13.0-18.0); Mean Corp Hgb Conc. 34.9 g/dL (33.0-37.0); Mean Corpuscular Hgb 30.8 pg (27.0-31.0); Mean Corpuscular Volume 88.3 fL (80.0-94.0); Mean Platelet Volume 10.1 fL (7.4-10.4); Platelet Count 203 10^3/uL (130-400); Red Blood Cell Count 4.28 10^6/uL (4.70-6.10); Red Cell Dist. Width 12.2 % (11.5-14.5); White Blood Cell Count 5.5 10^3/uL (4.8-10.8)
[2024-05-24 08:34] LABS: Blood Urea Nitrogen 17 mg/dl (9-20); Calcium 9.3 mg/dl (8.4-10.2); Carbon Dioxide 28 mmol/L (22-30); Chloride 103 mmol/L (98-107); Estimated Creatinine Clearance 107 ml/min; Glucose 91 mg/dl (70-99); Magnesium 2.2 mg/dl (1.6-2.3); Phosphorus 4.3 mg/dl (2.5-4.5); Potassium 4.4 mmol/L (3.5-5.1); Sodium 141 mmol/L (135-145); eGFR > 60.00
--- NOTE | 2024-05-24 08:40 | W.PN.ID1 ---
Date of Service
Date of Service: May 24, 2024
Today's Communication
Observe off abx.
Assessment / Plan
Diplopia; resolved.
Abnormal MRI (1.4 cm focus of diffusion in anterior aspect of right thalamus)
Abnormal CSF; no symptomatology of meningismus, and CSF analysis not consistent with meningitis
Recommendations:
Observe off antibiotics.
Await further workup of HELPDESK MANAGER lesion.
Monitor white count and temperature curve.
����������������������������������������������������������
Chief Complaint
-: Other (Abnormal LP)
Subjective / Review of Systems
Patient seen and examined. Reports feeling well. No return of diplopia.
Review of Systems: No Fever and No Chills
Vital Signs / Physical Exam
Vital Signs
Vital Signs
Temp Pulse Resp BP Pulse Ox
97.8 F 72 18 107/68 98
05/24/24 07:43 05/24/24 07:43 05/24/24 07:43 05/24/24 07:43 05/24/24 07:43
Physical Exam
Constitutional: No Acute Distress, Comfortable and Non-toxic
Eyes: Pupils Equal, Pupils Round, Sclera Anicteric and Other (EOMI)
Cardiovascular: S1/S2; Negative S3/S4
Pulmonary: Non Labored
Gastrointestinal: Non Distended
Neurological: Awake and Alert; Negative Meningeal Signs
Psychological: Calm
Objective Data
Lab Data
Lab Results
05/24/24 06:50
05/24/24 06:50
ESR 6 mm/hour (0-20) 05/22/24 07:27
PT 13.2 Sec (11.4-14.6) 05/23/24 07:23
INR 0.97 05/23/24 07:23
Estimated Creat Clear 107 ml/min 05/24/24 06:50
C-Reactive Protein < 5.00 mg/L (0.0-10.00) 05/23/24 15:11
Most recent labs reviewed.
CSF
05/23/24
12:10
CSF Appearance Clear
CSF Color Colorless
CSF WBC 126 H*
CSF RBC 5
CSF Lymphocytes 91
CSF Macrophages 9
CSF Glucose 35 L
CSF Total Protein 118 H
Imaging:
05/23/2024 MRI brain with contrast: LAIR hyperintense signal is redemonstrated at the anterior margin of the right thalamus, as seen on the recent brain MRI from 05/22/2024. Two adjacent foci of postcontrast enhancement are identified at this
location measuring 0.8 x 0.6 x 0.7 cm and 0.5 x 0.5 x 1.3 cm. Findings are of uncertain etiology. Wernicke encephalopathy is a possibility, although the distribution is somewhat atypical. Active demyelination or other inflammatory/infectious
encephalopathies could be considered. The patient is currently scheduled for a lumbar puncture, and correlation with CSF fluid analysis may be helpful. Further imaging follow-up can also be performed. (See official report for additional detail.
Film personally reviewed.)
[2024-05-24 11:15] VITALS: BP 142/74
--- NOTE | 2024-05-24 13:38 | W.PN.NEURO.1 ---
Today's Communication / Plan
-
.
Subjective/Objective
Subjective Data
Date of Service: May 24, 2024
Neurology follow-up note.
Mr. Iraheta reports no complaints. He denies having headaches, change in vision or strength. No reports of change in personality behavior based on patient's spouse report
No labs�, CRP�normal, vitamin B12�426, NIEVES, vitamin B1�pending.
CSF�WBCs�125, normal RBCs, lymphocytes, glucose�35, total protein�180.
Brain MRI with and without gadolinium (05/23/2024) FLAIR hyperintense signal at the anterior margin of the right thalamus, two adjacent foci of postcontrast enhancement are identified at this location measuring 0.8 x 0.6 x 0.7 cm and 0.5 x 0.5 x 1.3
cm.
Mild FLAIR hyperintense signal of the bilateral mamillary bodies. 0.4 cm focus of enhancement to the left midline above the optic chiasm and anterior to the left mamillary body. 0.5 cm focus of enhancement to the right of midline that appears to
involve the right optic nerve tract just distal to the optic chiasm.
CTA head/neck�no hemodynamically significant stenosis, hilar, supraclavicular and paratracheal lymph node enlargement.
PMH: Crohn's disease on Mesalamine, MEREDITH Meckel's diverticulum
PSH: Intestinal resection, exploratory laparotomy
SH: , non-smoker, drinks beer up to 7 cans once a week for decades
FH: No family history of autoimmune disease
All: Cefaclor, levofloxacin
ROS: Constitutional: Negative. Negative for chills, fever and unexpected weight change.
HENT: Negative for ear pain, hearing loss, tinnitus and trouble swallowing.
Eyes: Negative. Negative for photophobia, pain and visual disturbance.
Respiratory: Negative for cough, choking and shortness of breath.
Cardiovascular: Negative for chest pain, palpitations and leg swelling.
Gastrointestinal: Negative for abdominal pain and vomiting.
Endocrine: Negative. Negative for cold intolerance.
Genitourinary: Negative for dysuria, flank pain and urgency.
Musculoskeletal: Negative for back pain, gait problem, neck pain and neck stiffness.
Skin: Negative for rash.
Allergic/Immunologic: Negative. Negative for immunocompromised state.
Neurological: Negative for dizziness, tremors, seizures, speech difficulty, numbness and headaches.
Psychiatric/Behavioral: Negative for behavioral problems, confusion and hallucinations.
General: Well developed. In no acute distress.
Cardio: Regular rate and rhythm without murmur. Extremities are without cyanosis or edema.
Neuro:
Mental Status: Alert, oriented to person, place, and date. Normal attention and recall. Good fund of knowledge. Follows complex requests across the midline. Comprehension, naming, and repetition intact. Immediate and delayed recall 3/3.
Cranial Nerves: Pupils are equally round and reactive to light. EOMs full. Visual castañeda full to confrontation. No ptosis. No nystagmus. V1-V3 intact to light touch and pinprick bilaterally, symmetric. Face symmetric. Normal hearing AU. The
palate elevated well. SCMs and traps 5/5. Tongue midline. No dysarthria.
Motor: Normal bulk and tone. No pronator or arm drift. Strength 5/5 throughout. No clonus.
Reflexes: 2+ throughout the upper extremities and knees. 2/2 in AJs. Plantar responses flexor bilaterally.
Sensory: Normal pinprick, vibration and JPS.
Coordination: No dysmetria or tremor.
Gait: deferred
Assessment and Plan:
I. Multifocal cranial nerve, mamillary body and basal ganglia enhancing signal abnormalities. Differential diagnosis includes inflammatory versus demyelinating versus infectious etiologies.
II. Lymphadenopathy
III. Crohn's disease
- Fall precautions
- Follow-up CSF and serological tests
- C and T-spine MRI w/wo meredith (can be done as outpatient)
- Start IV thiamine
-Repeat brain MRI in 3-4 weeks.
- PT
I personally reviewed all radiology and labs along with past medical records pertinent to current medical problems. Total time spent in patient care is 36 minutes.
Thank you for allowing us to participate in the care of this patient. We will continue to follow. Please do not hesitate to contact us with any questions or concerns.
Objective Data
Vital Signs
Temp Pulse Resp BP Pulse Ox
36.6 C 95 20 142/74 95
05/24/24 11:15 05/24/24 11:15 05/24/24 11:15 05/24/24 11:15 05/24/24 11:15
Lab Results
05/24/24 06:50
05/24/24 06:50
PT 13.2 Sec (11.4-14.6) 05/23/24 07:23
INR 0.97 05/23/24 07:23
Sodium 141 mmol/L (135-145) 05/24/24 06:50
Potassium 4.4 mmol/L (3.5-5.1) 05/24/24 06:50
BUN 17 mg/dl (9-20) 05/24/24 06:50
Glucose 91 mg/dl (70-99) 05/24/24 06:50
Calcium 9.3 mg/dl (8.4-10.2) 05/24/24 06:50
Phosphorus 4.3 mg/dl (2.5-4.5) 05/24/24 06:50
LDL Cholesterol, Calc 71 mg/dl 05/22/24 07:27
Vitamin B12 426 pg/ml (239-931) 05/23/24 15:11
Patient Allergies
levofloxacin [From Levaquin] Allergy (Severe, Verified 05/21/24 13:48)
Tongue Swelling
cefaclor [From Ceclor] Allergy (Intermediate, Verified 05/21/24 13:48)
Nausea / Vomiting
Vital Signs and Labs
-
Vital Signs and Labs:
Vital Signs
Temp Pulse Resp BP Pulse Ox
36.6 C 95 20 142/74 95
05/24/24 11:15 05/24/24 11:15 05/24/24 11:15 05/24/24 11:15 05/24/24 11:15
Lab Results
05/24/24 06:50
05/24/24 06:50
PT 13.2 Sec (11.4-14.6) 05/23/24 07:23
INR 0.97 05/23/24 07:23
Sodium 141 mmol/L (135-145) 05/24/24 06:50
Potassium 4.4 mmol/L (3.5-5.1) 05/24/24 06:50
BUN 17 mg/dl (9-20) 05/24/24 06:50
Glucose 91 mg/dl (70-99) 05/24/24 06:50
Calcium 9.3 mg/dl (8.4-10.2) 05/24/24 06:50
Phosphorus 4.3 mg/dl (2.5-4.5) 05/24/24 06:50
LDL Cholesterol, Calc 71 mg/dl 05/22/24 07:27
Vitamin B12 426 pg/ml (239-931) 05/23/24 15:11
Medications
-
Medications:
Generic Name Dose Route Start Last Admin
Trade Name Freq PRN Reason Stop Dose Admin
Acetaminophen 650 mg 05/21/24 20:44
Acetaminophen 650 Mg Rectal Suppository RECTAL 06/18/24 20:43
Q4HPRN PRN
ROSENBERG, mild pain, or temp >100.4F
Acetaminophen 650 mg 05/21/24 20:44
Acetaminophen 325 Mg Tablet PO 06/18/24 20:43
Q4HPRN PRN
ORSENBERG, mild pain, or temp >100.4F
Calcium Polycarbophil 1,250 mg 05/22/24 08:00 05/24/24 07:59
Calcium Polycarbophil 625 Mg Tablet PO 06/19/24 07:59 1,250 mg
DAILY PAN Administration
Cetirizine HCl 10 mg 05/22/24 08:00 05/24/24 07:59
Cetirizine Hcl 10 Mg Tablet PO 06/19/24 07:59 10 mg
DAILY PAN Administration
Citalopram Hydrobromide 20 mg 05/22/24 08:00 05/24/24 07:59
Citalopram 20 Mg Tablet PO 06/19/24 07:59 20 mg
DAILY PAN Administration
Enoxaparin Sodium 40 mg 05/22/24 18:00 05/23/24 17:08
Enoxaparin Sodium 40 Mg/0.4 Ml Syringe SC 06/19/24 17:59 40 mg
QPM PAN Administration
Loperamide HCl 2 mg 05/21/24 20:44
Loperamide 2 Mg Capsule PO 06/18/24 20:43
DAILYPRN PRN
diarrhea
Mesalamine 1.2 Gram 0 grams 05/22/24 08:00
Tablet,Delayed PO 06/19/24 07:59
Release (Dr/Ec) Take DAILY PAN
2 Tablets (2 X 1.2
Gm = 2.4 Gm) Po
Sodium Chloride 0 flush 05/21/24 22:00
Sodium Chloride 0.9% (Flush) Syringe IV 06/18/24 21:59
PER PROTOCOL PAN
Thiamine HCl 100 mg 05/24/24 14:00
Thiamine (100 Mg/Ml) 2 Ml Vial IV 05/26/24 08:01
DAILY PAN
Vitamin B Complex/Vitamin C 1 caplet 05/22/24 08:00 05/24/24 07:59
Vitamin B Complex With Vitamin C Caplet PO 06/19/24 07:59 1 caplet
DAILY PAN Administration
Home Medications
-
Home Medications
biotin 10 mg tablet 10 mg PO DAILY Supplement 05/21/24
calcium polycarbophil 625 mg tablet (FiberCon) 1,250 mg PO DAILY Constipation 05/21/24
cetirizine 10 mg tablet (Zyrtec) 10 mg PO DAILY Allergies 05/21/24
citalopram 20 mg tablet 20 mg PO DAILY Mental Health/Anxiety 05/21/24
loperamide 2 mg capsule (Imodium A-D) 2 mg PO DAILYPRN PRN diarrhea 05/21/24
mesalamine 1.2 gram tablet,delayed release 2.4 g PO DAILY Gastrointestinal Issue 05/21/24
vitamin B complex 1 tab PO DAILY Supplement 05/21/24
[2024-05-24] MEDS: THIAMINE INJECTION 100 MG IV (15:54)
[2024-05-24 16:50] VITALS: BP 143/74
--- NOTE | 2024-05-24 17:16 | W.DCSUMMARY ---
Discharge Summary
Discharge Data
Date of Admission: 05/23/24
Date of Discharge: 05/24/24
-
Pending Results: Yes
Additional Pending Results:
Lab work results as per neurology
Discharge Plan
-
Patient Disposition: Home (Routine Discharge)
Discharge Diagnosis/Procedures: Transient Diplopia unclear etiology possibly infectious encephalitis since resolved
Brain MRI results concerning for possible inflammatory vs demyelinating vs infectious etiologies
Pleocytosis in cerebrospinal fluid of unclear etiology
Condition: Good
Diet: Low Cholesterol
Activity: As tolerated
Driving Restrictions: As prior to admission
Bathing Restrictions: None
Others Tests: Follow up with primary care provider or neurology to repeat Brain MRI in 3-4 weeks of discharge.
Activity Restrictions/Additional Instructions:
Follow up with primary care provider in 1 week of discharge and Neurology in 2-4 weeks of discharge.
Referrals:
Rinku Joseph DO [Family Provider] - in one week
Ye Lazo MD [Active] - in two to four weeks
Prescriptions:
Continued
biotin 10 mg Tablet
10 mg PO DAILY
loperamide [Imodium A-D] 2 mg Capsule
2 mg PO DAILYPRN PRN (Reason: diarrhea)
cetirizine [Zyrtec] 10 mg Tablet
10 mg PO DAILY
citalopram 20 mg Tablet
20 mg PO DAILY
calcium polycarbophil [FiberCon] 625 mg Tablet
1,250 mg PO DAILY
vitamin B complex Tablet
1 tab PO DAILY
mesalamine 1.2 gram Tablet,Delayed Release (Dr/Ec)
2.4 g PO DAILY
Discharge Orders:
Discharge Patient (As Directed); Ordered 05/24/24
Ordered By: Glenroy Catalan
Discharge Date and Time
Print Language: AMHARIC
[2024-05-24] MEDS: LOVENOX SC (17:24)
[2024-05-25 20:12] LABS: Angiotensin-1-converting Enzym 73 U/L (16-85)
[2024-05-26 01:36] LABS: ANA, IgG Reflex to HEp-2 None Detected (None Detected)
[2024-05-26 01:48] LABS: SSA 52 (Ro)(ENA) Ab, IgG 2 AU/mL (0-40); SSA 60 (Ro)(ENA) Ab, IgG 1 AU/mL (0-40); SSB (La)(ENA) Ab, IgG 1 AU/mL (0-40)
[2024-05-26 09:17] LABS: Myeloperoxidase Antibody 0 AU/mL (0-19); Serine Protease-3, IgG 0 AU/mL (0-19)
[2024-05-26 10:34] LABS: Albumin Index 18.3 ratio (0.0-9.0); Albumin, CSF 73 mg/dL (0-35); Albumin, Serum 3993 mg/dL (3500-5200); CSF IgG Synthesis Rate 3.3 mg/d (<=8.0); CSF Oligoclonal Bands Negative (Negative); CSF Oligoclonal Bands Number Matching Bands (0-1); IgG 797 mg/dL (768-1632); IgG, CSF 7.6 mg/dL (0.0-6.0)
[2024-05-26 13:40] LABS: Lyme Antibody Screen, EIA Negative (Negative)
== END 2024-05-24 18:30 | disposition home or self-care (01) | DRG 123 ==
LOC: 4 WEST ACU 08:34
PROVIDERS: Radiology Diagnostic Radiology; ADMITTING PHYSICIAN Internal Medicine; ATTENDING PHYSICIAN Internal Medicine; CONSULT PHYSICIAN Internal Medicine Infectious Disease; CONSULT PHYSICIAN Psychiatry & Neurology Clinical Neurophysiology; EMERGENCY PHYSICIAN Student in an Organized Health Care Education/Training Program; FAMILY PHYSICIAN Family Medicine; OTHER PHYSICIAN Psychiatry & Neurology Neurology
PROC: BR191ZZ Fluoroscopy of Lumbar Spine using Low Osmolar Contrast (ICD-10-PCS; 2024-05-23)
PROC: 009Y3ZX Drainage of Lumbar Spinal Cord, Percutaneous Approach, Diagnostic (ICD-10-PCS; 2024-05-23)
DX: H53.2 Diplopia (principal); K50.90 Crohn's disease, unspecified, without complications; G37.9 Demyelinating disease of central nervous system, unspecified; H49.01 Third [oculomotor] nerve palsy, right eye; Z79.899 Other long term (current) drug therapy; I45.10 Unspecified right bundle-branch block; Z88.1 Allergy status to other antibiotic agents; Q43.0 Meckel's diverticulum (displaced) (hypertrophic)
CPT/HCPCS: 62328; 70496; 70498; 70551; 70552; 72147; 72156; 80048; 80061; 82040; 82042; 82164; 82607; 82784; 82945; 83036; 83516; 83735; 83916; 84100; 84157; 84425; 85025; 85027; 85610; 85652; 86038; 86140; 86235; 86618; 88108; 89051; 92610; 93005; 97129; 97162; 97165; 99285; A9575; Q9967

== ENCOUNTER 2024-06-03 01:31 | Observation (INO) | payer BC, SELFPAY ==
[2024-06-02 21:47] VITALS: BP 138/83
[2024-06-02 22:06] VITALS: BMI 27.3
[2024-06-02 22:09] VITALS: BP 132/80
[2024-06-02 22:09] LABS: Glucose - Point of Care 104 mg/dl (70-99)
--- NOTE | 2024-06-02 22:28 | ED.GENMED ---
History of Present Illness
General
Chief Complaint: Dizziness
Source: patient and family
Time Seen by Provider: 06/02/24 22:00
Nursing documentation reviewed up to this point in time: agreed with
History of Present Illness
History of Present Illness:
This a pleasant 44-year-old male presents to the emergency department after an episode of dizziness, visual acuity changes, and gait disturbance. Patient states that symptoms started around 4 PM. last remembers him being 'normal' around 5 PM.
Patient was at his son's soccer game and he was watching when bystanders called the police on him because they thought he was intoxicated. He was interrogated and definitely could realize why they thought he was intoxicated but he admits to no
alcohol tonight. Patient states that he drinks 6 or 7 beers twice a week but typically on the weekends. He works in [employer] and works from home. Patient had somewhat similar symptoms approximately 2 weeks ago and was admitted for 4 days. He
was diagnosed with a thiamine deficiency and has a follow-up appointment with neurology in September. Patient has been taking thiamine regularly since discharge. Patient states that he has not had any other events since his discharge.
Vital signs are stable. Patient not hypoxic
Nursing note reviewed. I agree with nursing documentation up to this point in time.
Home Meds and allergies reviewed.
NUMBER AND COMPLEXITY OF PROBLEMS ADDRESSED AT THE ENCOUNTER
� Chronic conditions affecting care: Alcohol use
� Acute Exacerbation and/or Progression of Chronic Illness: Seemingly acute problem
� Differential Diagnosis includes: TIA, CVA, Warnicke's encephalopathy, thiamine deficiency
AMOUNT AND/OR COMPLEXITY OF DATA TO BE REVIEWED AND ANALYZED
I performed an independent evaluation of the following and my interpretation is:
EKG: EKG shows normal sinus rhythm rate 73 with normal intervals, normal axis. There is a right bundle branch block present. When compared to previous EKG dated May 21, 2024, no obvious change noted.
Pulse Ox: Not Hypoxic
Cut Off Machine Operator: Sinus Rhythm rate of 66
CT:
X-rays:
Ultrasound:
Laboratory Studies:
Other:
Review of other/old records:
Clinical information was obtained by an independent historian:
Prescriptions/Medications Considered but not given:
Further testing considered but not performed:
RISK OF COMPLICATIONS AND/OR MORBIDITY OR MORTALITY OF PATIENT MANAGEMENT
Social determinants of health affecting care: Good Social Support
Discussion with other providers:
Escalation of care including admission/observation vs risk of discharge considered: After being observed in the emergency department, patient is
CRITICAL CARE NOTE:
Total Time (exclusive of procedures):
Update:
Phy Exam
General Physical Exam
General Presentation: well appearing and no apparent distress
General Skin: warm and dry
General Habitus: normal
General Mental: alert
General Hydration: appears well hydrated
ENT Exam
ENT Exam: EOMI, pharynx normal, neck supple and normocephalic
Eye Exam
Eye Exam: PERRL, EOMI and other (Slight ptosis on the left which states is new)
Cardiovascular Exam
Cardiovascular Exam: regular rate/rhythm, no edema, no murmur and normal peripheral pulses
Pulmonary Exam
Pulmonary Exam: lungs clear, no respiratory distress, no rales, no crackles, no rhonchi, no stridor, no wheezing and no cough
Gastrointestinal Exam
Gastrointestinal Exam: normal bowel sounds, non tender, soft, no organomegaly, no pulsatile mass and non distended
Neurological Exam
Neurological Exam: alert, oriented x3, no motor deficits and speech normal
Musculoskeletal Exam
Musculoskeletal Exam: full ROM and no edema
Skin Exam
Skin Exam: normal color, warm/dry, no rash and no petechia
Psychiatric Exam
Psychiatric Exam: normal mood/affect
Scores
NIH Stroke Score
Level of Consciousness: 0 - Alert
LOC Questions: 0-Answers both correctly
LOC Commands: 0-Performs both correctly
Best Horizontal Gaze: 0-Normal
Visual Da Silva: 0=Normal, no visual loss
Facial Palsy: 0=Normal, symmetrical
Motor - Right Arm: 0=No drift 10 seconds
Motor - Left Arm: 0=No drift 10 seconds
Motor - Right Le-No drift 5 seconds
Motor - Left Le-No drift 5 seconds
Limb Ataxia: 0-Absent
Sensation: 0-Normal
Best Language: 0-No aphasia
Dysarthria: 0-Normal
Extinction and Inattention: 0-No abnormality
Total Score:: 0
Thrombolytic Contraindication
Reasons for NON-Tx with Thrombolytics ABSOLUTE Exclusions: Greater than 4.5 hrs from onset of sxs
Course
Orders/Labs/Results
Orders:
Orders
06/02/24 21:58
CT HEAD STROKE ALERT W/o Cont Urgent
Reason For Exam: stroke alert
06/02/24 22:12
CT HEAD/NECK ANG STROKE ALERT Urgent
Reason For Exam: gait disturbance
Cardiac Monitoring- Treatment ONCE
Urinalysis Reflex To Culture Urgent
Urine Drug Abuse Screen Urgent
06/02/24 22:13
Electrocardiogram (*1) Stat
Reason for Study: Other
Other Reason for Exam: overdose
EKG- Treatment ONCE
06/02/24 22:15
Acetaminophen Urgent
Alcohol Urgent
Comprehensive Metabolic Panel Urgent
PTT Urgent
Prothrombin Time Urgent
Salicylate Urgent
06/02/24 22:16
Complete Blood Count/With Diff Urgent
Erythrocyte Sed Rate Urgent
Troponin I Urgent
Abnormal Lab Results
06/02/24 06/02/24 06/02/24
22:07 22:15 22:16
RBC 4.40 L 10^6/uL
(4.70-6.10)
Hct 38.2 L %
(39.0-52.0)
MCH 31.4 H pg
(27.0-31.0)
Immature Gran % 0.6 H %
(0-0.5)
Lymphocytes % 20.3 L %
(20.5-51.1)
Glucose 101 H mg/dl
(70-99)
Salicylates < 1.0 L mg/dl
(2.0-20.0)
Acetaminophen < 10 L ug/ml
(10-30)
POC Glucose 104 H mg/dl
(70-99)
06/02/24 22:16
06/02/24 22:15
Vital Signs
Initial and Last Documented VS:
Initial Vital Signs
Temp Pulse Resp BP Pulse Ox
97.9 F 81 15 138/83 99
06/02/24 21:47 06/02/24 21:47 06/02/24 21:47 06/02/24 21:47 06/02/24 21:47
Last Documented Vital Signs
Temp Pulse Resp BP Pulse Ox
97.9 F 57 14 117/65 96
06/02/24 21:47 06/02/24 23:45 06/02/24 23:45 06/02/24 23:00 06/02/24 23:45
*Radiology
Radiology exam reviewed: radiology read reviewed
*Pulse Oximetry
Patient hypoxic: no
*Cut Off Machine Operator Interpretation
Rate: normal
Interpretation: normal
Rhythm: sinus
*Critical Care Note
Total Time (30-74mins, 75-104mins- exclusive of procedures): 35 (Critical care statement: A total of 35 minutes of critical care time was provided for this patient. This time is separate from time utilized to perform the aforementioned documented
procedures. Aggregate critical care time includes only time during which I was engaged in work directl)
Update Note
Update Note:
Spoke with Dr. Draper, neurology who remembers patient from previous admission.
She request that we admit him for further testing.
She does not want aspirin or Plavix at this time. She does not feel that this is a vascular issue
No tPA recommended based on greater than 4.5 hours from onset
ED Attending Note
-
Portions of this chart may have been created with voice recognition software.� Occasional wrong word or��sound alike� substitutions may have occurred due to the inherent limitations of voice recognition software.
Discharge Plan
Departure
Patient Disposition: Admit
Date of Disposition: 06/02/24
Time of Disposition: 23:59
Presentation/result/management discussed w/ accepting MD/DO: Hospitalist
Discharge Problem:
Brain TIA, Ataxia
Prescriptions:
No Action
biotin 10 mg Tablet
10 mg PO DAILY
loperamide [Imodium A-D] 2 mg Capsule
2 mg PO DAILYPRN PRN (Reason: diarrhea)
cetirizine [Zyrtec] 10 mg Tablet
10 mg PO DAILY
citalopram 20 mg Tablet
20 mg PO DAILY
calcium polycarbophil [FiberCon] 625 mg Tablet
1,250 mg PO DAILY
vitamin B complex Tablet
1 tab PO DAILY
mesalamine 1.2 gram Tablet,Delayed Release (Dr/Ec)
2.4 g PO DAILY
thiamine mononitrate (vit B1) 100 mg Tablet
100 mg PO DAILY Qty: 30 0RF
Referrals:
Rinku Joseph DO [Family Provider] -
Interventions
Interventions:
*Risk Screen - Suicide Last Done: 06/02/24 22:08
*General Assessment Last Done: 06/02/24 21:47
*Neglect/Abuse Screening Last Done: 06/02/24 21:47
*ED- Fall Risk Assessment Last Done: 06/02/24 22:06
*ED COVID-19 Vaccine History Last Done: 06/02/24 21:47
ED- Neurological Assessment Last Done: 06/02/24 22:18
ED- Cardiac Assessment Last Done: 06/02/24 22:22
Discharge Date and Time
Print Language: SLOVENIAN
[2024-06-02 22:35] LABS: % Basophils 0.6 % (0-2); % Eosinophils 1.7 % (0-6); % Immature Granulocytes 0.6 % (0-0.5); % Lymphocytes 20.3 % (20.5-51.1); % Monocytes 8.1 % (1.7-9.3); % Neutrophils 68.7 % (42.2-75.2); Absolute Eosinophils 0.1 10^3/uL (0-0.7); Absolute Lymphocytes 1.5 10^3/uL (1.2-3.4); Absolute Monocytes 0.6 10^3/uL (0.1-0.6); Absolute Neutrophils 4.9 10^3/uL (1.4-6.5); Hematocrit 38.2 % (39.0-52.0); Hemoglobin 13.8 g/dL (13.0-18.0); Mean Corp Hgb Conc. 36.1 g/dL (33.0-37.0); Mean Corpuscular Hgb 31.4 pg (27.0-31.0); Mean Corpuscular Volume 86.8 fL (80.0-94.0); Mean Platelet Volume 10.1 fL (7.4-10.4); Nucleated Red Blood Cells % 0 % (-); Platelet Count 234 10^3/uL (130-400); Red Cell Dist. Width 12.3 % (11.5-14.5); White Blood Cell Count 7.2 10^3/uL (4.8-10.8)
[2024-06-02 22:38] LABS: INR 0.94
[2024-06-02 22:39] LABS: APTT 25.6 Sec (23.4-35.0); Alcohol None Detected
[2024-06-02 22:40] LABS: ALT (SGPT) 37 U/L (0-50); AST (SGOT) 29 U/L (17-59); Acetaminophen < 10 ug/ml (10-30); Albumin 4.7 g/dl (3.5-5.0); Alkaline Phosphatase 39 U/L (38-126); Blood Urea Nitrogen 15 mg/dl (9-20); Calcium 9.6 mg/dl (8.4-10.2); Carbon Dioxide 25 mmol/L (22-30); Chloride 105 mmol/L (98-107); Estimated Creatinine Clearance 107 ml/min; Glucose 101 mg/dl (70-99); Potassium 4.2 mmol/L (3.5-5.1); Salicylate < 1.0 mg/dl (2.0-20.0); Sodium 141 mmol/L (135-145); Total Bilirubin 0.9 mg/dl (0.2-1.3); Total Protein 7.6 g/dl (6.3-8.2); eGFR > 60.00
[2024-06-02 22:48] LABS: Troponin I < 0.012 ng/ml
[2024-06-02 22:57] LABS: Erythrocyte Sed Rate 6 mm/hour (0-20)
[2024-06-02 23:00] VITALS: BP 117/65
[2024-06-03] VITALS (8 sets, daily range): BP systolic 103–122; BP diastolic 53–70; BMI 26.9
--- NOTE | 2024-06-03 00:28 | HPS.HSE ---
Family Physician
-
Family Physician: Rinku Joseph
Chief Complaint
-
Ataxia
History of Present Illness
This is a 44 y.o male with past medical history significant for Crohn's disease presenting to the emergency department with ataxia.
Patient initially presented to the hospital a few weeks ago with vertical diplopia, and a mild pronator drift. Initially was thought to have TIA/CVA. Workup for TIA or CVA was negative. Aspirin and Plavix was discontinued. The MRI was concerning
for possible demyelination versus infectious/inflammatory encephalopathies. LP was performed and the studies were concerning for pleocytosis with WBC count that was elevated. Patient was monitored off of antibiotics and antiviral. He had
additional MRI of the cervical and thoracic spine which were unremarkable.
On discharge home patient reportedly did well up until this afternoon. He was walking around at soccer practice when people noted that he was unsteady on his feet. Patient himself reports feeling of clouded sensorium. He feels like his cognition
is slightly diminished. Denies any acute memory changes. He denies any headache. He denies any nausea or vomiting. He has not had any fevers or chills. He denies any abdominal symptoms. He denies any urinary symptoms. He reports mild blurry
vision but denies any diplopia. He does have slight difficulty with mental focusing.
In the emergency department the patient was afebrile. Blood pressure was 117/65 with a pulse of 57. ECG with normal sinus rhythm and right bundle unchanged from prior. CBC was normal. Electrolytes BUN/creatinine were all normal. Glucose was
normal. He had a CT of the head which showed no acute abnormalities. CT angio of the head and neck was without any large vessel occlusion, dissection aneurysm or bleeding.
Medical History
Past Medical History
Past Medical History: Reports Other (Crohn's disease)
Past Surgical History: Reports Bowel Resection
Social History
Tobacco: Non-smoker
Alcohol: Occasional
Drug: None
Personal:
Living: With Family
Employment: Employed
Family History
Family History: Not pertinent
Allergies / Home Medications
Allergies reflects when Allergies were last updated in [facility].
Home Medications with original date entered in [facility]
Allergy/Medication List:
Allergies
Allergy/AdvReac Type Severity Reaction Status Date / Time
cefaclor [From Ceclor] Allergy Nausea / Verified 06/02/24 22:18
Vomiting
levofloxacin [From Levaquin] Allergy Tongue Verified 06/02/24 22:18
Swelling
Home Medications
biotin 10 mg tablet 10 mg PO DAILY Supplement 05/21/24
calcium polycarbophil 625 mg tablet (FiberCon) 1,250 mg PO DAILY Constipation 05/21/24
cetirizine 10 mg tablet (Zyrtec) 10 mg PO DAILY Allergies 05/21/24
citalopram 20 mg tablet 20 mg PO DAILY Mental Health/Anxiety 05/21/24
loperamide 2 mg capsule (Imodium A-D) 2 mg PO DAILYPRN PRN diarrhea 05/21/24
mesalamine 1.2 gram tablet,delayed release 2.4 g PO DAILY Gastrointestinal Issue 05/21/24
vitamin B complex 1 tab PO DAILY Supplement 05/21/24
thiamine mononitrate (vit B1) 100 mg tablet 100 mg PO DAILY #30 tabs 05/24/24
Review of Systems
-
History Source: Patient and Family
Constitutional: Reports No Symptoms
EENT: Reports No Symptoms
Respiratory: Reports No Symptoms
Abdomen/GI: Reports No Symptoms
: Reports No Symptoms
Musculoskeletal: Reports No Symptoms
Skin: Reports No Symptoms
Neurological: Reports Dizzy
Endocrine: Reports No Symptoms
Hematologic/Lymphatic: Reports No Symptoms
Psych: Reports No Symptoms
Physical Exam
Vital Signs
Vital Signs
Temp Pulse Resp BP Pulse Ox
97.9 F 57 14 117/65 96
06/02/24 21:47 06/02/24 23:45 06/02/24 23:45 06/02/24 23:00 06/02/24 23:45
Physical Exam
General: Well Developed, Well Nourished, No Apparent Distress and Comfortable
HEENT: NormoCephalic, Anicteric, Moist mucous membranes and Atraumatic
Respiratory: Clear
Cardiac: S1/S2 and Regular Rhythm
Breast: Deferred by me
GI: Soft, Non Tender, Non Distended and Normal Bowel Sounds
Rectal: Deferred by Provider
Genito-urinary: Deferred by me
Musculoskeletal: No Clubbing, No Cyanosis and No Edema
Skin: Warm
Neuro: AO x 3, No Motor Deficits, Cranial Nerves Intact, No Sensory Deficits and DTR's Intact & Symmetrical; No Slurred Speech or Facial Droop
Hematologic/Lymphatic: No Lymphadenopathy
Psych: Calm
Laboratory Results
-
06/02/24 22:16
06/02/24 22:15
Laboratory Results
PT 13.0 Sec (11.4-14.6) 06/02/24 22:15
INR 0.94 06/02/24 22:15
APTT 25.6 Sec (23.4-35.0) 06/02/24 22:15
Total Bilirubin 0.9 mg/dl (0.2-1.3) 06/02/24 22:15
AST 29 U/L (17-59) 06/02/24 22:15
ALT 37 U/L (0-50) 06/02/24 22:15
Alkaline Phosphatase 39 U/L (38-126) 06/02/24 22:15
Troponin I < 0.012 ng/ml 06/02/24 22:16
Data Reviewed
-
CT Scan: Report Reviewed by me
Medical Tests (Nuc Med, Echo, EKG etc): Image Personally Visualized and interpreted
Lab Data: Labs Reviewed by me
Old Records: Reviewed
Impression/Plan
-
IMPRESSION:
44 y.o male with h/o Crohns presenting to ED with ataxia and clouded sensorium. NIHSS = 0 without focal deficits. Labs normal. CT head and CT angio normal. Was recently admitted for diploplia which resolved and had negative stroke w/u. MRI rule
out stroke but was concerning for inflammatory encephalopathy vs demyelination. MRI of the thoracic and lumbar spine normal. Similarly today, these symptoms are not consistent with CVA given findings on imaging, prior MRI and global findings. More
c/w encephalopathy but etiology unclear. No signs of acute infection. No toxins or metabolic derangements.
PLAN:
1. Dizziness
- admit to med/surg
- negative inflammatory markers and negative serologies,
- lp is considered negative for oligoclonal bands
- prior LP with pleocytosis but no acute infection, no viral w/u
- negative lyme
- serum tox negative, will obtain UDS
- no indication for repeat MRI,
- serial examinations and monitor for seizures
- neurology consultation
DVT PPX - SCDs
Code status - full code
[2024-06-03 02:00] LABS: COVID-19 Antigen Negative (Negative)
--- NOTE | 2024-06-03 03:17 | PTCARENOTE ---
Pt is aaox3, no c/o pain. denies dizziness. pt unsteady - ambulated to bed x1. NIH=0. pt oriented to room w/ call oakley in reach.
--- NOTE | 2024-06-03 07:23 | CON.NEURO ---
Consultation
Order
Date of Consultation: 06/03/24
Requesting Provider: Sumit Merrill MD
Reason for Consult: Dizziness, encephalopathy
Neurology consultation note
HPI: This is a 44-year-old man who presented to [facility] on June 02, 2024 with transient ataxia and encephalopathy
According to the patient he was preparing to drive his son to soccer practice when he experienced difficulty walking, describing it as 'walking funny' and 'almost falling'. He also mentions possible stuttering during this episode. The symptoms
lasted for approximately 20 minutes.
The patient states that he was aware of his unsteady gait at the time and acknowledges that his vision was bothering him during the incident. Police was called for suspected intoxication but following alcohol level test and interview the patient
was reportedly released home. Mr. Iraheta drove himself home 'very carefully.' His became concerned when someone called her about the incident, and she noted that he seemed 'not himself' upon returning home. Although the patient felt fine, his
contacted their doctor, who advised them to go to the hospital.
Mr. Iraheta denies any current headaches, change in vision,vertigo, diplopia. He reports taking thiamine and other unspecified medications, which he has been consistently taking. He does not recall having similar symptoms when he first came to the
hospital last week.
ER VS: 138/83, afebrile.
Labs: EtOH�negative.
CSF() WBCs�125, normal RBCs, lymphocytes, glucose�35, total protein�180.
Brain MRI with and without gadolinium (05/23/2024) FLAIR hyperintense signal at the anterior margin of the right thalamus, two adjacent foci of postcontrast enhancement are identified at this location measuring 0.8 x 0.6 x 0.7 cm and 0.5 x 0.5 x 1.3
cm.
Mild FLAIR hyperintense signal of the bilateral mamillary bodies. 0.4 cm focus of enhancement to the left midline above the optic chiasm and anterior to the left mamillary body. 0.5 cm focus of enhancement to the right of midline that appears to
involve the right optic nerve tract just distal to the optic chiasm.
C/T spine MRI -no cord abnormalities.
Labs: Normal thiamine, NIEVES, B12, ESR, CRP
CTA head/neck�no hemodynamically significant stenosis; hilar, supraclavicular and paratracheal lymph node enlargement.
PMH: Crohn's disease on Mesalamine, ARABELLA, Meckel's diverticulum
PSH: Intestinal resection, exploratory laparotomy
SH: , non-smoker, drinks beer up to 7 cans once a week for decades
FH: No family history of autoimmune disease
All: Cefaclor, levofloxacin
ROS: Constitutional: Negative. Negative for chills, fever and unexpected weight change.
HENT: Negative for ear pain, hearing loss, tinnitus and trouble swallowing.
Eyes: Negative. Negative for photophobia, pain and visual disturbance.
Respiratory: Negative for cough, choking and shortness of breath.
Cardiovascular: Negative for chest pain, palpitations and leg swelling.
Gastrointestinal: Negative for abdominal pain and vomiting.
Endocrine: Negative. Negative for cold intolerance.
Genitourinary: Negative for dysuria, flank pain and urgency.
Musculoskeletal: Negative for back pain, gait problem, neck pain and neck stiffness.
Skin: Negative for rash.
Allergic/Immunologic: Negative. Negative for immunocompromised state.
Neurological: Positive for transient ataxia and encephalopathy
Psychiatric/Behavioral: Negative for behavioral problems, confusion and hallucinations.
General: Well developed. In no acute distress.
Cardio: Regular rate and rhythm without murmur. Extremities are without cyanosis or edema.
Neuro:
Mental Status: Alert, oriented to person, place, and date. Normal attention and recall. Good fund of knowledge. Follows complex requests across the midline. Comprehension, naming, and repetition intact.
Cranial Nerves: Pupils are equally round and reactive to light. EOMs full. Visual castañeda full to confrontation. No ptosis. No nystagmus. V1-V3 intact to light touch and pinprick bilaterally, symmetric. Face symmetric. Normal hearing AU. The
palate elevated well. SCMs and traps 5/5. Tongue midline. No dysarthria.
Motor: Normal bulk and tone. No pronator or arm drift. Strength 5/5 throughout. No clonus.
Reflexes: 2+ throughout the upper extremities and knees. 2/2 in AJs. Plantar responses flexor bilaterally.
Sensory: Normal pinprick, vibration and JPS.
Coordination: No dysmetria or tremor.
Gait: deferred
Assessment and Plan:
I. Transient ataxia with encephalopathy. Subacute multifocal cranial nerve, mamillary body and basal ganglia enhancing signal abnormalities. �The mammillothalamic tract disruption has been shown to inhibit seizures in animal studies. Differential
diagnosis includes inflammatory versus neoplastic versus paraneoplastic
II. Lymphadenopathy
III. Crohn's disease
- Fall precautions
- Please continue thiamine
- Repeat brain MRI with and without arabella
- Routine EEG
- Further workup will depend on the above studies results
- PT
I personally reviewed all radiology and labs along with past medical records pertinent to current medical problems. Total time spent in patient care is 60 minutes.
Thank you for allowing us to participate in the care of this patient. We will continue to follow. Please do not hesitate to contact us with any questions or concerns
Subjective/Objective
Subjective Data
Date of Service: June 03, 2024
Objective Data
Vital Signs
Temp Pulse Resp BP Pulse Ox
36.7 C 61 18 117/69 99
06/03/24 02:33 06/03/24 02:33 06/03/24 02:33 06/03/24 02:33 06/03/24 02:33
PT 13.0 Sec (11.4-14.6) 06/02/24 22:15
INR 0.94 06/02/24 22:15
APTT 25.6 Sec (23.4-35.0) 06/02/24 22:15
Sodium 141 mmol/L (135-145) 06/02/24 22:15
Potassium 4.2 mmol/L (3.5-5.1) 06/02/24 22:15
BUN 15 mg/dl (9-20) 06/02/24 22:15
Glucose 101 mg/dl (70-99) H 06/02/24 22:15
Calcium 9.6 mg/dl (8.4-10.2) 06/02/24 22:15
Patient Allergies
cefaclor [From Ceclor] Allergy (Verified 06/02/24 22:18)
Nausea / Vomiting
levofloxacin [From Levaquin] Allergy (Verified 06/02/24 22:18)
Tongue Swelling
Medications
-
Active Medications
Generic Name Dose Route Start Last Admin
Trade Name Freq PRN Reason Stop Dose Admin
Acetaminophen 650 mg 06/03/24 02:36
Acetaminophen 325 Mg Tablet PO 07/01/24 02:35
Q4HPRN PRN
mild pain/ROSENEBRG/temp> 100.4F
Bisacodyl 10 mg 06/03/24 02:36
Bisacodyl 10 Mg Rectal Suppository RECTAL 07/01/24 02:35
[id number] PRN
constipation
Cetirizine HCl 10 mg 06/03/24 08:00
Cetirizine Hcl 10 Mg Tablet PO 07/01/24 07:59
DAILY PAN
Citalopram Hydrobromide 20 mg 06/03/24 08:00
Citalopram 20 Mg Tablet PO 07/01/24 07:59
DAILY PAN
Mesalamine 1.2 Gram 0 grams 06/03/24 08:00
Tablet,Delayed PO 07/01/24 07:59
Release (Dr/Ec) Take DAILY PAN
2 Tablet (2.4 Gm)
Po Daily
Polyethylene Glycol 17 grams 06/03/24 02:36
Polyethylene Glycol Powder 17 Grams Packet PO 07/01/24 02:35
DAILYPRN PRN
constipation
Senna/Docusate Sodium 1 tablet 06/03/24 02:36
Docusate W/Senna (Jemima-Colace) Tablet PO 07/01/24 02:35
BIDPRN PRN
constipation
Sodium Chloride 0 flush 06/03/24 03:00
Sodium Chloride 0.9% (Flush) Syringe IV 07/01/24 02:59
PER PROTOCOL PAN
Thiamine HCl 100 mg 06/03/24 08:00
Thiamine 100 Mg Tablet PO 07/01/24 07:59
DAILY PAN
Home Medications
�Medication �Instructions �Recorded
biotin 10 mg tablet 10 mg PO DAILY Supplement 05/21/24
calcium polycarbophil 625 mg 1,250 mg PO DAILY Constipation 05/21/24
tablet (FiberCon)
cetirizine 10 mg tablet (Zyrtec) 10 mg PO DAILY Allergies 05/21/24
citalopram 20 mg tablet 20 mg PO DAILY Mental 05/21/24
Health/Anxiety
mesalamine 1.2 gram tablet,delayed 2.4 g PO DAILY Gastrointestinal 05/21/24
release Issue
vitamin B complex 1 tab PO DAILY Supplement 05/21/24
thiamine mononitrate (vit B1) 100 100 mg PO DAILY #30 tabs 05/24/24
mg tablet
Vital Signs and Labs
-
Vital Signs and Labs:
Vital Signs
Temp Pulse Resp BP Pulse Ox
36.6 C 66 17 112/65 98
06/03/24 07:34 06/03/24 07:34 06/03/24 07:34 06/03/24 07:34 06/03/24 07:34
Lab Results
06/03/24 08:35
06/03/24 08:35
PT 13.0 Sec (11.4-14.6) 06/02/24 22:15
INR 0.94 06/02/24 22:15
APTT 25.6 Sec (23.4-35.0) 06/02/24 22:15
Sodium 143 mmol/L (135-145) 06/03/24 08:35
Potassium 4.2 mmol/L (3.5-5.1) 06/03/24 08:35
BUN 14 mg/dl (9-20) 06/03/24 08:35
Glucose 93 mg/dl (70-99) 06/03/24 08:35
Calcium 9.4 mg/dl (8.4-10.2) 06/03/24 08:35
Medications
-
Medications:
Generic Name Dose Route Start Last Admin
Trade Name Freq PRN Reason Stop Dose Admin
Acetaminophen 650 mg 06/03/24 02:36
Acetaminophen 325 Mg Tablet PO 07/01/24 02:35
Q4HPRN PRN
mild pain/ROSENBERG/temp> 100.4F
Bisacodyl 10 mg 06/03/24 02:36
Bisacodyl 10 Mg Rectal Suppository RECTAL 07/01/24 02:35
[id number] PRN
constipation
Cetirizine HCl 10 mg 06/03/24 08:00 06/03/24 07:39
Cetirizine Hcl 10 Mg Tablet PO 07/01/24 07:59 10 mg
DAILY PAN Administration
Citalopram Hydrobromide 20 mg 06/03/24 08:00 06/03/24 07:39
Citalopram 20 Mg Tablet PO 07/01/24 07:59 20 mg
DAILY PAN Administration
Mesalamine 1.2 Gram 0 grams 06/03/24 08:00
Tablet,Delayed PO 07/01/24 07:59
Release (Dr/Ec) Take DAILY PAN
2 Tablet (2.4 Gm)
Po Daily
Polyethylene Glycol 17 grams 06/03/24 02:36
Polyethylene Glycol Powder 17 Grams Packet PO 07/01/24 02:35
DAILYPRN PRN
constipation
Senna/Docusate Sodium 1 tablet 06/03/24 02:36
Docusate W/Senna (Jemima-Colace) Tablet PO 07/01/24 02:35
BIDPRN PRN
constipation
Sodium Chloride 0 flush 06/03/24 03:00
Sodium Chloride 0.9% (Flush) Syringe IV 07/01/24 02:59
PER PROTOCOL PAN
Thiamine HCl 100 mg 06/03/24 08:00 06/03/24 07:39
Thiamine 100 Mg Tablet PO 07/01/24 07:59 100 mg
DAILY PAN Administration
Home Medications
-
Home Medications
biotin 10 mg tablet 10 mg PO DAILY Supplement 05/21/24
calcium polycarbophil 625 mg tablet (FiberCon) 1,250 mg PO DAILY Constipation 05/21/24
cetirizine 10 mg tablet (Zyrtec) 10 mg PO DAILY Allergies 05/21/24
citalopram 20 mg tablet 20 mg PO DAILY Mental Health/Anxiety 05/21/24
mesalamine 1.2 gram tablet,delayed release 2.4 g PO DAILY Gastrointestinal Issue 05/21/24
vitamin B complex 1 tab PO DAILY Supplement 05/21/24
thiamine mononitrate (vit B1) 100 mg tablet 100 mg PO DAILY #30 tabs 05/24/24
[2024-06-03] MEDS: CELEXA 20 MG PO (07:39)
[2024-06-03] MEDS: ZYRTEC 10 MG PO (07:39)
[2024-06-03] MEDS: VITAMIN B1 100 MG PO (07:39)
[2024-06-03 09:16] LABS: Hematocrit 38.4 % (39.0-52.0); Hemoglobin 13.2 g/dL (13.0-18.0); Mean Corp Hgb Conc. 34.4 g/dL (33.0-37.0); Mean Corpuscular Hgb 30.4 pg (27.0-31.0); Mean Corpuscular Volume 88.5 fL (80.0-94.0); Platelet Count 201 10^3/uL (130-400); Red Blood Cell Count 4.34 10^6/uL (4.70-6.10); Red Cell Dist. Width 12.5 % (11.5-14.5); White Blood Cell Count 4.9 10^3/uL (4.8-10.8)
[2024-06-03 09:42] LABS: Blood Urea Nitrogen 14 mg/dl (9-20); Calcium 9.4 mg/dl (8.4-10.2); Carbon Dioxide 28 mmol/L (22-30); Chloride 106 mmol/L (98-107); Estimated Creatinine Clearance 107 ml/min; Glucose 93 mg/dl (70-99); Potassium 4.2 mmol/L (3.5-5.1); Sodium 143 mmol/L (135-145); eGFR > 60.00
[2024-06-03 11:14] LABS: TSH Reflex To Free T4 1.53 uIU/ml (0.47-4.68)
[2024-06-03 11:33] LABS: Vitamin B12 368 pg/ml (239-931)
--- NOTE | 2024-06-03 12:05 | EEG.RPT ---
Electroencephalogram Report
Recording
Date of EE06/03/24
Type of EEG: Routine
Done with Video Recording: Yes
Patient Status: Inpatient
Recording Conditions: Awake, Drowsy and Asleep
Hyperventilation Performed: Yes
Photic Stimulation Performed: Yes
--- NOTE | 2024-06-03 12:28 | W.PN.HOSP.TC ---
Today's Communication/Plan
-
See plan
Assessment / Plan
Assessment / Plan
Impression:
Recurrent presentation with alternating neurologic symptoms
Recent hospitalization with self-limited episode of diplopia.
Currently presenting with self-limited episode of encephalopathy manifested with lethargy confusion, possibly ataxia.
Recent MRI with hyperintense signal at the bilateral mamillary bodies, at the anterior margin of the right thalamus.
LP�CSF with pleocytosis WBC 150, mildly elevated protein negative for oligoclonal bands.
CTA consistent with incidental finding of hilar and mediastinal lymphadenopathy
Recent laboratory workup with negative NIEVES, normal B12, thiamine, inflammatory markers. Lyme negative. Normal calcium and TFT.
Other conditions:
Crohn's disease with history of bowel resection, currently controlled with mesalamine.
Plan:
Neurologic exam nonfocal with cognitive status back to baseline.
Given presentation, above mentioned workup differential could be last not limited to demyelinating process, paraneoplastic syndrome, inflammatory, less likely infection related (patient is not on immunosuppressive medications), less likely atypical
seizures.
Discussed with neurology
Plan is to repeat MRI with hope of possible changes correlating to current presentation.
EEG.
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
Empirically on thiamine
Anticipated Discharge: 24 - 48 hours
Subjective/Interval History
-
Date of Service: June 03, 2024
Objective Data
-
Labs:
Laboratory Results
06/03/24
08:35
WBC 4.9
Hgb 13.2
Hct 38.4 L
Plt Count 201
Sodium 143
Potassium 4.2
Chloride 106
Carbon Dioxide 28
BUN 14
Creatinine 0.9
Glucose 93
Calcium 9.4
Vital Signs:
Vital Signs
Temp Pulse Resp BP Pulse Ox
97.9 F 66 17 112/65 98
06/03/24 07:34 06/03/24 07:34 06/03/24 07:34 06/03/24 07:34 06/03/24 07:34
I&O
06/02/24 06/03/24 06/04/24
06:59 06:59 06:59
Intake Total 420 / 420
Balance 420 / 420
Physical Exam
-
General: Well Developed and No Apparent Distress
HEENT: Normocephalic, Atraumatic and Moist Mucous Membranes
Respiratory: Clear to Auscultation
Cardiac: Regular Rhythm and S1/S2; Negative Murmur, Rub or Gallop
GI: Soft, Nontender, Nondistended and Normal Bowel Sounds; Negative Organomegaly
Rectal: Deferred by Provider
Musculoskeletal: No Clubbing, No Cyanosis and No Edema
Skin: Negative Rash
Neuro: Nonfocal/Grossly Intact
--- NOTE | 2024-06-03 15:55 | CM ---
Addendum entered by Tracey Farley 06/03/24 15:58:
OBS status - obs form explained & signed. left in binder
Original Note:
Patient seen at bedside
IA complete
Lives with in a split level home, no steps to enter, 6 steps to bedroom
PLOF: independent
denies DME
denies VN/Rehab
PCP: Dr. Joseph
Pharmacy: [facility]
PLAN: home, no needs anticipated
[2024-06-03 16:05] LABS: Urine Albumin Negative (Neg - Trace); Urine Bilirubin Negative (Negative); Urine Character Clear (Clear); Urine Color Yellow; Urine Glucose Negative (Negative); Urine Ketone Negative (Negative); Urine Leukocyte Negative (Negative); Urine Nitrite Negative (Negative); Urine Occult Blood 1+ (Negative); Urine Specific Gravity 1.015 (<1.030); Urine Urobilinogen Negative (Neg - 1+)
[2024-06-03 16:23] LABS: Urine Bacteria Few (Negative); Urine Squamous Cell 0-2 /LPF (Few); Urine White Cell 0-2 /HPF (0-5)
[2024-06-03 16:43] LABS: Amphetamines Negative (Negative); Barbiturates Negative (Negative); Benzodiazepines Negative (Negative); Buprenorphine Negative (Negative); Cocaine Negative (Negative); Marijuana Negative (Negative); Methadone Negative (Negative); Methamphetamines Negative (Negative); Opiates Negative (Negative); Phencyclidine Negative (Negative); Tricyclic Antidepressants Negative (Negative)
--- NOTE | 2024-06-03 17:53 | PTCARENOTE ---
Pt back to baseline mentation all day. Alert/pleasant/conversive. Denies dizziness. No neuro deficits noted.
[2024-06-03] MEDS: PLAVIX 75 MG PO (19:11)
[2024-06-03] MEDS: LOW STRENGTH ASPIRIN 81 MG PO (19:11)
[2024-06-03 19:48] LABS: C-Reactive Protein < 5.00 mg/L (0.0-10.00)
[2024-06-03 19:49] LABS: D-Dimer < 0.27 ug/mlFEU (0.00-0.50)
[2024-06-04 07:10] VITALS: BP 104/61
--- NOTE | 2024-06-04 07:52 | W.PN.NEURO.1 ---
Today's Communication / Plan
-
.
Subjective/Objective
Subjective Data
Date of Service: June 04, 2024.
Neurology follow-up note.
Mr. Iraheta reports no complaints. He has been normotensive and afebrile.
Brain MRI wo arabella(06/03/2024) showed 9 mm focus of restricted diffusion within the anterior left thalamus with with associated T2/FLAIR hyperintense signal. There is persistent FLAIR hyperintense signal involving the anterior right thalamus. The
differential includes acute infarction, encephalitis, demyelination and possible Wernicke encephalopathy.
LDL�101, urine tox�negative, D-dimers�negative
Chart review:
CSF() WBCs�125, normal RBCs, lymphocytes, glucose�35, total protein�180.
Brain MRI with and without gadolinium (05/23/2024) FLAIR hyperintense signal at the anterior margin of the right thalamus, two adjacent foci of postcontrast enhancement are identified at this location measuring 0.8 x 0.6 x 0.7 cm and 0.5 x 0.5 x 1.3
cm.
Mild FLAIR hyperintense signal of the bilateral mamillary bodies. 0.4 cm focus of enhancement to the left midline above the optic chiasm and anterior to the left mamillary body. 0.5 cm focus of enhancement to the right of midline that appears to
involve the right optic nerve tract just distal to the optic chiasm.
C/T spine MRI -no cord abnormalities.
Labs: Normal thiamine, NIEVES, B12, ESR, CRP
CTA head/neck�no hemodynamically significant stenosis; hilar, supraclavicular and paratracheal lymph node enlargement.
PMH: Crohn's disease on Mesalamine, ARABELLA, Meckel's diverticulum
PSH: Intestinal resection, exploratory laparotomy
SH: , non-smoker, drinks beer up to 7 cans once a week for decades
FH: No family history of autoimmune disease
All: Cefaclor, levofloxacin
ROS: Constitutional: Negative. Negative for chills, fever and unexpected weight change.
HENT: Negative for ear pain, hearing loss, tinnitus and trouble swallowing.
Eyes: Negative. Negative for photophobia, pain and visual disturbance.
Respiratory: Negative for cough, choking and shortness of breath.
Cardiovascular: Negative for chest pain, palpitations and leg swelling.
Gastrointestinal: Negative for abdominal pain and vomiting.
Endocrine: Negative. Negative for cold intolerance.
Genitourinary: Negative for dysuria, flank pain and urgency.
Musculoskeletal: Negative for back pain, gait problem, neck pain and neck stiffness.
Skin: Negative for rash.
Allergic/Immunologic: Negative. Negative for immunocompromised state.
Neurological: Positive for transient ataxia and encephalopathy
Psychiatric/Behavioral: Negative for behavioral problems, confusion and hallucinations.
General: Well developed. In no acute distress.
Cardio: Regular rate and rhythm without murmur. Extremities are without cyanosis or edema.
Neuro:
Mental Status: Alert, oriented to person, place, and date. Normal attention and recall. Good fund of knowledge. Follows complex requests across the midline. Comprehension, naming, and repetition intact.
Cranial Nerves: Pupils are equally round and reactive to light. EOMs full. Visual castañeda full to confrontation. No ptosis. No nystagmus. V1-V3 intact to light touch and pinprick bilaterally, symmetric. Face symmetric. Normal hearing AU. The
palate elevated well. SCMs and traps 5/5. Tongue midline. No dysarthria.
Motor: Normal bulk and tone. No pronator or arm drift. Strength 5/5 throughout. No clonus.
Coordination: No dysmetria or tremor.
Gait: deferred
Assessment and Plan:
I. Probable left thalamic stroke. Subacute multifocal cranial nerve, mamillary body and basal ganglia enhancing signal abnormalities. Differential diagnosis includes autoimmune versus metabolic versus paraneoplastic etiologies.
II. Lymphadenopathy
III. Crohn's disease
- Continue telemetry monitoring
- Please continue thiamine
- TTE
- paraneoplastic panel
- Plan for brain SPECT
- Continue DAPT and Lipitor 40 mg nightly
- Hematology consult
- ID follow-up
- PT
I personally reviewed all radiology and labs along with past medical records pertinent to current medical problems. Total time spent in patient care is 40 minutes.
Thank you for allowing us to participate in the care of this patient. We will continue to follow. Please do not hesitate to contact us with any questions or concerns
Objective Data
Vital Signs
Temp Pulse Resp BP Pulse Ox
36.6 C 65 20 105/57 97
06/03/24 23:52 06/03/24 23:52 06/03/24 23:52 06/03/24 23:52 06/03/24 23:52
Lab Results
06/03/24 08:35
06/03/24 08:35
PT 13.0 Sec (11.4-14.6) 06/02/24 22:15
INR 0.94 06/02/24 22:15
APTT 25.6 Sec (23.4-35.0) 06/02/24 22:15
Sodium 143 mmol/L (135-145) 06/03/24 08:35
Potassium 4.2 mmol/L (3.5-5.1) 06/03/24 08:35
BUN 14 mg/dl (9-20) 06/03/24 08:35
Glucose 93 mg/dl (70-99) 06/03/24 08:35
Calcium 9.4 mg/dl (8.4-10.2) 06/03/24 08:35
Vitamin B12 368 pg/ml (239-931) 06/03/24 08:35
Ur Buprenorphine Negative (Negative) 06/03/24 15:48
Patient Allergies
cefaclor [From Ceclor] Allergy (Verified 06/02/24 22:18)
Nausea / Vomiting
levofloxacin [From Levaquin] Allergy (Verified 06/02/24 22:18)
Tongue Swelling
Vital Signs and Labs
-
Vital Signs and Labs:
Vital Signs
Temp Pulse Resp BP Pulse Ox
36.6 C 70 18 104/61 100
06/04/24 07:10 06/04/24 07:10 06/04/24 07:10 06/04/24 07:10 06/04/24 07:10
Lab Results
06/03/24 08:35
06/03/24 08:35
PT 13.0 Sec (11.4-14.6) 06/02/24 22:15
INR 0.94 06/02/24 22:15
APTT 25.6 Sec (23.4-35.0) 06/02/24 22:15
Sodium 143 mmol/L (135-145) 06/03/24 08:35
Potassium 4.2 mmol/L (3.5-5.1) 06/03/24 08:35
BUN 14 mg/dl (9-20) 06/03/24 08:35
Glucose 93 mg/dl (70-99) 06/03/24 08:35
Calcium 9.4 mg/dl (8.4-10.2) 06/03/24 08:35
LDL Cholesterol, Calc 101 mg/dl 06/04/24 09:56
Vitamin B12 368 pg/ml (239-931) 06/03/24 08:35
Ur Buprenorphine Negative (Negative) 06/03/24 15:48
Medications
-
Medications:
Generic Name Dose Route Start Last Admin
Trade Name Freq PRN Reason Stop Dose Admin
Acetaminophen 650 mg 06/03/24 02:36
Acetaminophen 325 Mg Tablet PO 07/01/24 02:35
Q4HPRN PRN
mild pain/ROSENBERG/temp> 100.4F
Aspirin 81 mg 06/03/24 20:00 06/04/24 08:46
Aspirin 81 Mg Chewable Tablet PO 07/01/24 19:59 81 mg
DAILY PAN Administration
Atorvastatin Calcium 40 mg 06/04/24 18:00
Atorvastatin (Lipitor) 20 Mg Tablet PO 07/02/24 17:59
QPM PAN
Bisacodyl 10 mg 06/03/24 02:36
Bisacodyl 10 Mg Rectal Suppository RECTAL 07/01/24 02:35
[id number] PRN
constipation
Cetirizine HCl 10 mg 06/03/24 08:00 06/04/24 08:46
Cetirizine Hcl 10 Mg Tablet PO 07/01/24 07:59 10 mg
DAILY PAN Administration
Citalopram Hydrobromide 20 mg 06/03/24 08:00 06/04/24 08:46
Citalopram 20 Mg Tablet PO 07/01/24 07:59 20 mg
DAILY PAN Administration
Clopidogrel Bisulfate 75 mg 06/03/24 20:00 06/04/24 08:46
Clopidogrel 75 Mg Tablet PO 06/23/24 08:01 75 mg
DAILY PAN Administration
Mesalamine 1.2 Gram 0 grams 06/03/24 08:00
Tablet,Delayed PO 07/01/24 07:59
Release (Dr/Ec) Take DAILY PAN
2 Tablet (2.4 Gm)
Po Daily
Polyethylene Glycol 17 grams 06/03/24 02:36
Polyethylene Glycol Powder 17 Grams Packet PO 07/01/24 02:35
DAILYPRN PRN
constipation
Senna/Docusate Sodium 1 tablet 06/03/24 02:36
Docusate W/Senna (Jemima-Colace) Tablet PO 07/01/24 02:35
BIDPRN PRN
constipation
Sodium Chloride 0 flush 06/03/24 03:00
Sodium Chloride 0.9% (Flush) Syringe IV 07/01/24 02:59
PER PROTOCOL PAN
Thiamine HCl 100 mg 06/03/24 08:00 06/04/24 08:46
Thiamine 100 Mg Tablet PO 07/01/24 07:59 100 mg
DAILY PAN Administration
Home Medications
-
Home Medications
biotin 10 mg tablet 10 mg PO DAILY Supplement 05/21/24
calcium polycarbophil 625 mg tablet (FiberCon) 1,250 mg PO DAILY Constipation 05/21/24
cetirizine 10 mg tablet (Zyrtec) 10 mg PO DAILY Allergies 05/21/24
citalopram 20 mg tablet 20 mg PO DAILY Mental Health/Anxiety 05/21/24
mesalamine 1.2 gram tablet,delayed release 2.4 g PO DAILY Gastrointestinal Issue 05/21/24
vitamin B complex 1 tab PO DAILY Supplement 05/21/24
thiamine mononitrate (vit B1) 100 mg tablet 100 mg PO DAILY #30 tabs 05/24/24
[2024-06-04] MEDS: VITAMIN B1 100 MG PO (08:46)
[2024-06-04] MEDS: ZYRTEC 10 MG PO (08:46)
[2024-06-04] MEDS: CELEXA 20 MG PO (08:46)
[2024-06-04] MEDS: LOW STRENGTH ASPIRIN 81 MG PO (08:46)
[2024-06-04] MEDS: PLAVIX 75 MG PO (08:46)
[2024-06-04 10:32] LABS: HDL Cholesterol 47 mg/dl; LDL Cholesterol, Calculated 101 mg/dl; Total Cholesterol 181 mg/dl (50-199); Triglyceride 165 mg/dl (10-149); Very Low Density Lipoprotein 33 mg/dl (0-30)
[2024-06-04 11:34] LABS: HIV Combo Negative (Negative)
--- NOTE | 2024-06-04 13:04 | W.PN.HOSP.TC ---
Today's Communication/Plan
-
Continue with thiamine
Continue with aspirin and Plavix
Rehab evaluation
Assessment / Plan
Assessment / Plan
Impression:
Recurrent presentation with alternating neurologic symptoms
Recent hospitalization with self-limited episode of diplopia.
Currently presenting with self-limited episode of encephalopathy manifested with lethargy confusion, possibly ataxia.
Recent MRI with hyperintense signal at the bilateral mamillary bodies, at the anterior margin of the right thalamus.
Alcohol abuse-drinks approximately 6-7 beers over the weekend for the past 20 years
LP�CSF with pleocytosis WBC 150, mildly elevated protein negative for oligoclonal bands.
CTA consistent with incidental finding of hilar and mediastinal lymphadenopathy
Recent laboratory workup with negative NIEVES, normal B12, thiamine, inflammatory markers. Lyme negative. Normal calcium and TFT.
Other conditions:
Crohn's disease with history of bowel resection, currently controlled with mesalamine.
Plan:
Neurologic exam nonfocal with cognitive status back to baseline.
Given presentation, above mentioned workup differential could be last not limited to demyelinating process, paraneoplastic syndrome, inflammatory, less likely infection related (patient is not on immunosuppressive medications), less likely atypical
seizures.
Discussed with neurology
MR brain showing-There is a new mild 9 mm focus of restricted diffusion within the anterior left thalamus with with associated T2/FLAIR hyperintense signal. There is persistent FLAIR hyperintense signal involving the anterior right thalamus. The
differential includes acute infarction (possibly deep cerebral vein thrombus), encephalitis, demyelination and possible Wernicke encephalopathy. Artery of Percheron infarction can give a similar pattern although is considered less likely given the
difference in time between the bilateral thalamic abnormalities.
Discussed with neurology and requesting hematology evaluation for thrombophilia workup. Stroke in a young patient.
Continue with aspirin and Plavix
EEG.
Outpatient follow-up with repeated chest imaging and [employer] for lymphadenopathy workup
Hypercoagulable workup already ordered with Antithrombin 3, homocystine, antiphospholipid and paraneoplastic, protein C and protein S. Briefly discussed with hematology who recommended outpatient follow-up for hypercoagulable workup
Empirically on thiamine. Counseled on decreasing alcoholic intake. Low likelihood of withdrawal.
PT/OT
Anticipated Discharge: > 48 hours
Subjective/Interval History
-
Date of Service: June 04, 2024
Denies feeling better
Denies any focal weakness
Denies any lightheadedness, dizziness or problem with speaking or swallowing.
Objective Data
-
Vital Signs:
Vital Signs
Temp Pulse Resp BP Pulse Ox
98 F 70 18 104/61 100
06/04/24 07:10 06/04/24 07:10 06/04/24 07:10 06/04/24 07:10 06/04/24 11:20
I&O
06/03/24 06/04/24 06/05/24
06:59 06:59 06:59
Intake Total 660 / 660 480 / 480
Output Total 300 / 300
Balance 360 / 360 480 / 480
[2024-06-04 15:10] VITALS: BP 116/72
[2024-06-04] MEDS: LIPITOR 40 MG PO (17:00)
[2024-06-04 23:55] VITALS: BP 112/53
[2024-06-05 07:55] VITALS: BP 105/65
[2024-06-05] MEDS: CELEXA 20 MG PO (08:20)
[2024-06-05] MEDS: PLAVIX 75 MG PO (08:20)
[2024-06-05] MEDS: LOW STRENGTH ASPIRIN 81 MG PO (08:20)
[2024-06-05] MEDS: VITAMIN B1 100 MG PO (08:20)
[2024-06-05] MEDS: ZYRTEC 10 MG PO (08:20)
[2024-06-05 09:55] VITALS: BP 115/75; PULSE 73
[2024-06-05 10:00] VITALS: BP 115/75; PULSE 77; O2SAT 97
--- NOTE | 2024-06-05 10:33 | W.PN.HOSP.TC ---
Today's Communication/Plan
-
Echocardiogram in the morning
Rehab evaluation
Continue with aspirin and Plavix
Await for additional blood work results
Assessment / Plan
Assessment / Plan
Impression:
Recurrent presentation with alternating neurologic symptoms
Recent hospitalization with self-limited episode of diplopia.
Currently presenting with self-limited episode of encephalopathy manifested with lethargy confusion, possibly ataxia.
Recent MRI with hyperintense signal at the bilateral mamillary bodies, at the anterior margin of the right thalamus.
Alcohol abuse-drinks approximately 6-7 beers over the weekend for the past 20 years
LP�CSF with pleocytosis WBC 150, mildly elevated protein negative for oligoclonal bands.
CTA consistent with incidental finding of hilar and mediastinal lymphadenopathy
Recent laboratory workup with negative NIEVES, normal B12, thiamine, inflammatory markers. Lyme negative. Normal calcium and TFT.
Hyperlipidemia
Other conditions:
Crohn's disease with history of bowel resection, currently controlled with mesalamine.
Plan:
Neurologic exam nonfocal with cognitive status back to baseline.
Given presentation, above mentioned workup differential could be last not limited to demyelinating process, paraneoplastic syndrome, inflammatory, less likely infection related (patient is not on immunosuppressive medications), less likely atypical
seizures.
Discussed with neurology
MR brain showing-There is a new mild 9 mm focus of restricted diffusion within the anterior left thalamus with with associated T2/FLAIR hyperintense signal. There is persistent FLAIR hyperintense signal involving the anterior right thalamus. The
differential includes acute infarction (possibly deep cerebral vein thrombus), encephalitis, demyelination and possible Wernicke encephalopathy. Artery of Percheron infarction can give a similar pattern although is considered less likely given the
difference in time between the bilateral thalamic abnormalities.
Discussed with neurology and requesting hematology evaluation for thrombophilia workup. Stroke in a young patient.
Continue with aspirin and Plavix and started on statin
EEG.
Outpatient follow-up with repeated chest imaging and mri technologist for lymphadenopathy workup
Hypercoagulable workup already ordered with Antithrombin 3, homocystine, antiphospholipid and paraneoplastic, protein C and protein S. Briefly discussed with hematology Dr. Garrett who recommended outpatient follow-up for hypercoagulable workup
Empirically on thiamine. Counseled on decreasing alcoholic intake. Low likelihood of withdrawal.
Low normal vitamin B12. Start supplementation.
PT/OT
Anticipated Discharge: Within 24 hours
Subjective/Interval History
-
Date of Service: June 05, 2024
denies any new neurolgical symptoms-denies any weakness, speech problems, lightheadedness, dizziness
Objective Data
-
Vital Signs:
Vital Signs
Temp Pulse Resp BP Pulse Ox
97.7 F 60 18 105/65 99
06/05/24 07:55 06/05/24 07:55 06/05/24 07:55 06/05/24 07:55 06/05/24 09:56
I&O
06/04/24 06/05/24 06/06/24
06:59 06:59 06:59
Intake Total 660 / 660 2159
Output Total 300 / 300
Balance 360 / 360 2159
Physical Exam
-
General: Well Developed and No Apparent Distress
HEENT: Normocephalic, Atraumatic and Moist Mucous Membranes
Respiratory: Clear to Auscultation
Cardiac: Regular Rhythm and S1/S2; Negative Murmur, Rub or Gallop
GI: Soft, Nontender, Nondistended and Normal Bowel Sounds; Negative Organomegaly
Rectal: Deferred by Provider
Musculoskeletal: No Clubbing, No Cyanosis and No Edema
Skin: Negative Rash
Neuro: Awake, Alert, Oriented, AO x 3, No Motor Deficits and Nonfocal/Grossly Intact
Psych: Calm
[2024-06-05] MEDS: VITAMIN B-12 1000 MCG PO (11:16)
--- NOTE | 2024-06-05 11:25 | W.PN.NEURO.1 ---
Today's Communication / Plan
-
.
Subjective/Objective
Subjective Data
Date of Service: June 05, 2024
Neurology follow-up note.
Mr. Iraheta reports no complaints. He has been normotensive and afebrile.
Tele-NSR.
TTE-pending.
Brain MRI wo arabella(06/03/2024) 9 mm focus of restricted diffusion within the anterior left thalamus with with associated T2/FLAIR hyperintense signal. There is persistent FLAIR hyperintense signal involving the anterior right thalamus. The
differential includes acute infarction, encephalitis, demyelination and possible Wernicke encephalopathy.
LDL�101, urine tox�negative, D-dimers�negative
Chart review:
CSF() WBCs�125, normal RBCs, lymphocytes, glucose�35, total protein�180.
Brain MRI with and without gadolinium (05/23/2024) FLAIR hyperintense signal at the anterior margin of the right thalamus, two adjacent foci of postcontrast enhancement are identified at this location measuring 0.8 x 0.6 x 0.7 cm and 0.5 x 0.5 x 1.3
cm.
Mild FLAIR hyperintense signal of the bilateral mamillary bodies. 0.4 cm focus of enhancement to the left midline above the optic chiasm and anterior to the left mamillary body. 0.5 cm focus of enhancement to the right of midline that appears to
involve the right optic nerve tract just distal to the optic chiasm.
C/T spine MRI -no cord abnormalities.
Labs: Normal thiamine, NIEVES, B12, ESR, CRP
CTA head/neck�no hemodynamically significant stenosis; hilar, supraclavicular and paratracheal lymph node enlargement.
PMH: Crohn's disease on Mesalamine, ARABELLA, Meckel's diverticulum
PSH: Intestinal resection, exploratory laparotomy
SH: , non-smoker, drinks beer up to 7 cans once a week for decades
FH: No family history of autoimmune disease
All: Cefaclor, levofloxacin
ROS: Constitutional: Negative. Negative for chills, fever and unexpected weight change.
HENT: Negative for ear pain, hearing loss, tinnitus and trouble swallowing.
Eyes: Negative. Negative for photophobia, pain and visual disturbance.
Respiratory: Negative for cough, choking and shortness of breath.
Cardiovascular: Negative for chest pain, palpitations and leg swelling.
Gastrointestinal: Negative for abdominal pain and vomiting.
Endocrine: Negative. Negative for cold intolerance.
Genitourinary: Negative for dysuria, flank pain and urgency.
Musculoskeletal: Negative for back pain, gait problem, neck pain and neck stiffness.
Skin: Negative for rash.
Allergic/Immunologic: Negative. Negative for immunocompromised state.
Neurological: Positive for transient ataxia and encephalopathy
Psychiatric/Behavioral: Negative for behavioral problems, confusion and hallucinations.
General: Well developed. In no acute distress.
Cardio: Regular rate and rhythm without murmur. Extremities are without cyanosis or edema.
Neuro:
Mental Status: Alert, oriented to person, place, and date. Normal attention and recall. Good fund of knowledge. Follows complex requests across the midline. Comprehension, naming, and repetition intact. Able to do serial 7s, read and write.
Cranial Nerves: Pupils are equally round and reactive to light. EOMs full. Visual castañeda full to confrontation. No ptosis. No nystagmus. V1-V3 intact to light touch and pinprick bilaterally, symmetric. Face symmetric. Normal hearing AU. The
palate elevated well. SCMs and traps 5/5. Tongue midline. No dysarthria.
Motor: Normal bulk and tone. No pronator or arm drift. Strength 5/5 throughout. No clonus.
Coordination: No dysmetria or tremor.
Gait: deferred
Assessment and Plan:
I. Probable left thalamic stroke. Subacute multifocal cranial nerve, mamillary body and basal ganglia enhancing signal abnormalities. Differential diagnosis includes autoimmune versus metabolic versus paraneoplastic etiologies.
II. Lymphadenopathy
III. Crohn's disease
- Continue telemetry monitoring
- Continue thiamine
- TTE
- Please follow up paraneoplastic panel
- Plan for brain SPECT
- Continue DAPT for 3 weeks and Lipitor 40 mg nightly
- Hematology consult
- PT
I personally reviewed all radiology and labs along with past medical records pertinent to current medical problems. Total time spent in patient care is 40 minutes.
Thank you for allowing us to participate in the care of this patient. We will continue to follow. Please do not hesitate to contact us with any questions or concerns
Objective Data
Vital Signs
Temp Pulse Resp BP Pulse Ox
36.5 C 60 18 105/65 99
06/05/24 07:55 06/05/24 07:55 06/05/24 07:55 06/05/24 07:55 06/05/24 09:56
Lab Results
06/03/24 08:35
06/03/24 08:35
PT 13.0 Sec (11.4-14.6) 06/02/24 22:15
INR 0.94 06/02/24 22:15
APTT 25.6 Sec (23.4-35.0) 06/02/24 22:15
Sodium 143 mmol/L (135-145) 06/03/24 08:35
Potassium 4.2 mmol/L (3.5-5.1) 06/03/24 08:35
BUN 14 mg/dl (9-20) 06/03/24 08:35
Glucose 93 mg/dl (70-99) 06/03/24 08:35
Calcium 9.4 mg/dl (8.4-10.2) 06/03/24 08:35
LDL Cholesterol, Calc 101 mg/dl 06/04/24 09:56
Vitamin B12 368 pg/ml (239-931) 06/03/24 08:35
Ur Buprenorphine Negative (Negative) 06/03/24 15:48
Patient Allergies
cefaclor [From Ceclor] Allergy (Verified 06/02/24 22:18)
Nausea / Vomiting
levofloxacin [From Levaquin] Allergy (Verified 06/02/24 22:18)
Tongue Swelling
Vital Signs and Labs
-
Vital Signs and Labs:
Vital Signs
Temp Pulse Resp BP Pulse Ox
36.5 C 60 18 105/65 99
06/05/24 07:55 06/05/24 07:55 06/05/24 07:55 06/05/24 07:55 06/05/24 09:56
Lab Results
06/03/24 08:35
06/03/24 08:35
PT 13.0 Sec (11.4-14.6) 06/02/24 22:15
INR 0.94 06/02/24 22:15
APTT 25.6 Sec (23.4-35.0) 06/02/24 22:15
Sodium 143 mmol/L (135-145) 06/03/24 08:35
Potassium 4.2 mmol/L (3.5-5.1) 06/03/24 08:35
BUN 14 mg/dl (9-20) 06/03/24 08:35
Glucose 93 mg/dl (70-99) 06/03/24 08:35
Calcium 9.4 mg/dl (8.4-10.2) 06/03/24 08:35
LDL Cholesterol, Calc 101 mg/dl 06/04/24 09:56
Vitamin B12 368 pg/ml (239-931) 06/03/24 08:35
Ur Buprenorphine Negative (Negative) 06/03/24 15:48
Medications
-
Medications:
Generic Name Dose Route Start Last Admin
Trade Name Freq PRN Reason Stop Dose Admin
Acetaminophen 650 mg 06/03/24 02:36
Acetaminophen 325 Mg Tablet PO 07/01/24 02:35
Q4HPRN PRN
mild pain/ROSENBERG/temp> 100.4F
Aspirin 81 mg 06/03/24 20:00 06/05/24 08:20
Aspirin 81 Mg Chewable Tablet PO 07/01/24 19:59 81 mg
DAILY PAN Administration
Atorvastatin Calcium 40 mg 06/04/24 18:00 06/04/24 17:00
Atorvastatin (Lipitor) 40 Mg Tablet PO 07/02/24 17:59 40 mg
QPM PAN Administration
Bisacodyl 10 mg 06/03/24 02:36
Bisacodyl 10 Mg Rectal Suppository RECTAL 07/01/24 02:35
[id number] PRN
constipation
Cetirizine HCl 10 mg 06/03/24 08:00 06/05/24 08:20
Cetirizine Hcl 10 Mg Tablet PO 07/01/24 07:59 10 mg
DAILY PAN Administration
Citalopram Hydrobromide 20 mg 06/03/24 08:00 06/05/24 08:20
Citalopram 20 Mg Tablet PO 07/01/24 07:59 20 mg
DAILY PAN Administration
Clopidogrel Bisulfate 75 mg 06/03/24 20:00 06/05/24 08:20
Clopidogrel 75 Mg Tablet PO 06/23/24 08:01 75 mg
DAILY PAN Administration
Cyanocobalamin 1,000 mcg 06/05/24 11:00 06/05/24 11:16
Cyanocobalamin 1,000 Mcg Tablet PO 07/03/24 10:59 1,000 mcg
DAILY PAN Administration
Mesalamine 1.2 Gram 0 grams 06/03/24 08:00
Tablet,Delayed PO 07/01/24 07:59
Release (Dr/Ec) Take DAILY PAN
2 Tablet (2.4 Gm)
Po Daily
Polyethylene Glycol 17 grams 06/03/24 02:36
Polyethylene Glycol Powder 17 Grams Packet PO 07/01/24 02:35
DAILYPRN PRN
constipation
Senna/Docusate Sodium 1 tablet 06/03/24 02:36
Docusate W/Senna (Jemima-Colace) Tablet PO 07/01/24 02:35
BIDPRN PRN
constipation
Sodium Chloride 0 flush 06/03/24 03:00
Sodium Chloride 0.9% (Flush) Syringe IV 07/01/24 02:59
PER PROTOCOL PAN
Thiamine HCl 100 mg 06/03/24 08:00 06/05/24 08:20
Thiamine 100 Mg Tablet PO 07/01/24 07:59 100 mg
DAILY PAN Administration
Home Medications
-
Home Medications
biotin 10 mg tablet 10 mg PO DAILY Supplement 05/21/24
calcium polycarbophil 625 mg tablet (FiberCon) 1,250 mg PO DAILY Constipation 05/21/24
cetirizine 10 mg tablet (Zyrtec) 10 mg PO DAILY Allergies 05/21/24
citalopram 20 mg tablet 20 mg PO DAILY Mental Health/Anxiety 05/21/24
mesalamine 1.2 gram tablet,delayed release 2.4 g PO DAILY Gastrointestinal Issue 05/21/24
vitamin B complex 1 tab PO DAILY Supplement 05/21/24
thiamine mononitrate (vit B1) 100 mg tablet 100 mg PO DAILY #30 tabs 05/24/24
--- NOTE | 2024-06-05 12:27 | EEGC.RPT ---
Continuous EEG Report
Recording
Start Date of Data Reviewed: 06/03/24
Done with Video Recording: Yes
Electrocardiogram: Unremarkable
Report
TECHNICAL REMARKS: This is a technically satisfactory eighteen channel record employing 21 disc electrodes applied according to a measured international 10-20 electrode placement system. There were no significant technical difficulties. The study
was done on a [facility].
CLINICAL HISTORY: This is a 44-year-old man with transient aphasia. This study was requested to look for epileptiform abnormalities.
MEDICATION: Citalopram
STUDY DURATION: 26 min, 5 secs
REPORT: At the onset of the EEG, the patient is awake. The background activity consists of 9.5-10 Hz, persistent, posteriorly dominant, moderate amplitude, symmetric and rhythmic activity that is reactive to eye-opening. Anteriorly, it consists of
a mixture of low voltage indeterminate activity and 20-25 Hz, persistent, low amplitude, symmetric and rhythmic activity. Stepwise intermittent photic stimulation (1-31 Hz) and hyperventilation did not induce any abnormalities. Drowsiness is
characterized by low amplitude mixed frequency activity, decreased eye blinking, and muscle artifact. N2 sleep was reached
IMPRESSION: This is a normal awake and asleep EEG. There is no evidence of focal slowing or epileptiform activity. A normal EEG does not rule out epilepsy. If the clinical picture warrants, a sleep-deprived awake and sleep record may be helpful.
[2024-06-05 15:55] VITALS: BP 108/67
[2024-06-05] MEDS: LIPITOR 40 MG PO (17:23)
[2024-06-05 23:31] VITALS: BP 95/55
[2024-06-06] MEDS: CELEXA 20 MG PO (08:03)
[2024-06-06] MEDS: VITAMIN B1 100 MG PO (08:03)
[2024-06-06] MEDS: VITAMIN B-12 1000 MCG PO (08:03)
[2024-06-06] MEDS: PLAVIX 75 MG PO (08:03)
[2024-06-06] MEDS: ZYRTEC 10 MG PO (08:03)
[2024-06-06] MEDS: LOW STRENGTH ASPIRIN 81 MG PO (08:03)
[2024-06-06 08:17] VITALS: BP 105/61
--- NOTE | 2024-06-06 10:19 | CM ---
Patient seen at bedside
Obs status
PT eval no needs
PLAN: Home no needs
to transport
[2024-06-06 16:01] LABS: HSV 1/2 Combined Screen, IgG >22.40 IV
--- NOTE | 2024-06-06 16:15 | W.DS.TRANS ---
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
-
Discharge Instructions:
Discharge Diagnosis/Procedures Acute CVA
Ongoing hematologic work up
Hilar-mediastinal lymphadenopathy
Diet Regular
Instructions:
Stand-Alone Forms:
Changes to Home Medications: Yes
Discharge Medications:
DC Medications w/original date entered in [facility]
biotin 10 mg tablet 10 mg PO DAILY Supplement 05/21/24
calcium polycarbophil 625 mg tablet (FiberCon) 1,250 mg PO DAILY Constipation 05/21/24
cetirizine 10 mg tablet (Zyrtec) 10 mg PO DAILY Allergies 05/21/24
citalopram 20 mg tablet 20 mg PO DAILY Mental Health/Anxiety 05/21/24
mesalamine 1.2 gram tablet,delayed release 2.4 g PO DAILY Gastrointestinal Issue 05/21/24
vitamin B complex 1 tab PO DAILY Supplement 05/21/24
thiamine mononitrate (vit B1) 100 mg tablet 100 mg PO DAILY #30 tabs 05/24/24
aspirin 81 mg chewable tablet 81 mg PO DAILY #30 tabs 06/06/24
atorvastatin 40 mg tablet 40 mg PO QPM #30 tabs 06/06/24
clopidogrel 75 mg tablet 75 mg PO DAILY #20 tabs 06/06/24
Home Medication Changes
DAPT and statin initiated
Pending Results: No
[2024-06-06 16:23] VITALS: BP 124/78
[2024-06-06 18:26] LABS: Hepatitis C Antibody Negative (Negative)
[2024-06-06 22:12] LABS: Homocysteine 10 umol/L (0-15)
[2024-06-07 01:45] LABS: Beta-2-Glycoprotein I Ab. IgA <10 SAU (<=20); Beta-2-Glycoprotein I Ab. IgG <10 SGU (<=20); Beta-2-Glycoprotein I Ab. IgM <10 SMU (<=20)
[2024-06-07 06:51] LABS: HSV 2 Glycoprotein G Ab, IgG 0.14 IV (<=0.89)
[2024-06-07 09:22] LABS: Cardiolipin IgA Antibody <10 APL (<=11); Cardiolipin IgM Antibody <10 MPL (<=12); Cardiolipin Igg Antibody <10 GPL (<=14)
[2024-06-07 13:18] LABS: Protein S Total Antigen 111 % (84-134)
[2024-06-07 17:21] LABS: Protein C, Total Antigen >95 % (63-153)
[2024-06-07 20:29] LABS: Anti-Thrombin III Activity 108 % (76-128)
== END 2024-06-06 17:05 | disposition home or self-care (01) ==
LOC: 4 EAST ACU 01:31
PROVIDERS: ADMITTING PHYSICIAN Internal Medicine; ATTENDING PHYSICIAN Internal Medicine; CONSULT PHYSICIAN Psychiatry & Neurology Neurology; EMERGENCY PHYSICIAN Student in an Organized Health Care Education/Training Program; FAMILY PHYSICIAN Family Medicine
DX: I63.9 Cerebral infarction, unspecified (principal); R42 Dizziness and giddiness; R27.0 Ataxia, unspecified; G93.40 Encephalopathy, unspecified; K50.90 Crohn's disease, unspecified, without complications; F10.10 Alcohol abuse, uncomplicated; E78.5 Hyperlipidemia, unspecified; R59.0 Localized enlarged lymph nodes
CPT/HCPCS: 70450; 70496; 70498; 70551; 80048; 80053; 80061; 80143; 80179; 80306; 81003; 81015; 82077; 82607; 82962; 83090; 84443; 84484; 85025; 85027; 85300; 85302; 85305; 85379; 85610; 85652; 85730; 86140; 86146; 86147; 86148; 86255; 86694; 86695; 86696; 86803; 87389; 87502; 87811; 93005; 93306; 95816; 97161; 97165; 99291; G0378; Q9967

== ENCOUNTER → 2024-06-29 14:19 | Outpatient (REF) | payer BC, SELFPAY | LOC: RAD 14:19 | PROVIDERS: ATTENDING PHYSICIAN Internal Medicine Critical Care Medicine; FAMILY PHYSICIAN Family Medicine | DX: R59.0 Localized enlarged lymph nodes (principal) | CPT/HCPCS: 71260; Q9967 ==

== ENCOUNTER 2024-08-22 06:15 | Day surgery (SDC) | payer BC, SELFPAY ==
[2024-08-22] VITALS (7 sets, daily range): BP systolic 115–133; BP diastolic 64–78; BMI 27.8
[2024-08-22] MEDS: NSS 500 IV (11:21)
== END 2024-08-22 13:43 | disposition home or self-care (01) ==
LOC: SDS 06:15
PROVIDERS: ATTENDING PHYSICIAN Internal Medicine Critical Care Medicine
DX: R59.1 Generalized enlarged lymph nodes (principal)
CPT/HCPCS: 31629; 31652; 31654; 88173; 88305

== ENCOUNTER → 2024-10-14 13:21 | Outpatient (REF) | payer BC, SELFPAY | LOC: MRI 3T 13:21 | PROVIDERS: ATTENDING PHYSICIAN Psychiatry & Neurology Neurology; FAMILY PHYSICIAN Family Medicine | DX: R90.89 Other abnormal findings on diagnostic imaging of central nervous system (principal) | CPT/HCPCS: 70553; A9575 ==